=== PATIENT | female | born 1955 | race Caucasian/White ===

== ENCOUNTER → 2016-03-02 | Outpatient (CLI) | payer BC, OTHER ==
[2016-03-02 18:31] LABS: BLOOD UREA NITROGEN 10 mg/dl (7-18); BUN/CREATININE RATIO 12.4 (10-20); CALCIUM 9.3 mg/dl (8.5-10.1); CARBON DIOXIDE 28 mmol/L (21-32); CHLORIDE 103 mmol/L (98-107); CREATININE 0.78 mg/dl (0.60-1.20); GLUCOSE 102 mg/dl (70-99); POTASSIUM 3.9 mmol/L (3.5-5.1); SODIUM 143 mmol/L (136-145)
[2016-03-02 18:41] LABS: PHOSPHORUS 2.7 mg/dl (2.5-4.9)
[2016-03-03 06:06] LABS: ESTIMATED AVERAGE GLUCOSE 134 mg/dl; HA1C FLAG Normal (Normal)
== END | disposition home or self-care (01) ==
LOC: C.LABMFLN 14:16
PROVIDERS: ATTEND Family Medicine
DX: E03.9 Hypothyroidism, unspecified (principal); E11.9 Type 2 diabetes mellitus without complications

== ENCOUNTER → 2016-09-13 | Outpatient (CLI) | payer BC ==
[2016-09-13 18:20] LABS: BLOOD UREA NITROGEN 11 mg/dl (7-18); BUN/CREATININE RATIO 12.1 (10-20); CALCIUM 9.2 mg/dl (8.5-10.1); CARBON DIOXIDE 31 mmol/L (21-32); CHLORIDE 105 mmol/L (98-107); CREATININE 0.91 mg/dl (0.60-1.20); GLUCOSE 99 mg/dl (70-99); PHOSPHORUS 3.3 mg/dl (2.5-4.9); POTASSIUM 3.8 mmol/L (3.5-5.1); SODIUM 142 mmol/L (136-145)
[2016-09-14 08:23] LABS: ESTIMATED AVERAGE GLUCOSE 140 mg/dl; HA1C FLAG Normal (Normal)
== END | disposition home or self-care (01) ==
LOC: C.LABMFLN 14:58
PROVIDERS: ATTEND Family Medicine
DX: E11.9 Type 2 diabetes mellitus without complications (principal)

== ENCOUNTER → 2017-05-12 | Outpatient (CLI) | payer BC ==
[2017-05-12 18:45] LABS: BASO % 0.2 %; BASO ABS # 0.02 K/uL (0-0.2); EOS % 1.9 %; EOS ABS # 0.15 K/uL (0-0.5); HEMATOCRIT 39.6 % (37-47); HEMOGLOBIN 12.9 g/dL (12.0-16.0); IG# 0.03 K/uL (0.00-0.02); LYMPH % 32.3 %; MEAN CELL VOLUME 89.6 fL (80-100); MEAN CORPUSCULAR HEMOGLOBIN 29.2 pg (25-34); MEAN CORPUSCULAR HGB CONC 32.6 g/dl (32-36); MEAN PLATELET VOLUME 10.3 fL (7.4-10.4); MONO % 5.8 %; MONO ABS # 0.47 K/uL (0.11-0.59); NEUT % 59.4 %; NEUT ABS # 4.77 K/uL (1.4-6.5); PLATELET COUNT 224 K/uL (130-400); RED CELL DISTRIBUTION WIDTH CV 15.1 % (11.5-14.5); RED CELL DISTRIBUTION WIDTH SD 49.1 fL (36.4-46.3); WHITE BLOOD COUNT 8.04 K/uL (4.8-10.8)
[2017-05-12 19:05] LABS: ALBUMIN 3.6 gm/dl (3.4-5.0); ALT/SGPT 26 U/L (12-78); AST/SGOT 17 U/L (15-37); BLOOD UREA NITROGEN 15 mg/dl (7-18); CALCIUM 9.1 mg/dl (8.5-10.1); CARBON DIOXIDE 31 mmol/L (21-32); CREATININE 0.89 mg/dl (0.60-1.20); GLUCOSE 115 mg/dl (70-99); POTASSIUM 3.8 mmol/L (3.5-5.1); SODIUM 139 mmol/L (136-145)
[2017-05-12 19:14] LABS: ALKALINE PHOSPHATASE 80 U/L (45-117); CHOLESTEROL 170 mg/dl (0-200); LDL CHOLESTEROL CALCULATED 77 mg/dl; TOTAL PROTEIN 7.7 gm/dl (6.4-8.2)
[2017-05-13 07:20] LABS: HEMOGLOBIN A1C 6.8 % (4.5-5.6)
== END | disposition home or self-care (01) ==
LOC: C.LABMFLN 14:17
PROVIDERS: ATTEND Family Medicine
DX: E11.9 Type 2 diabetes mellitus without complications (principal); E03.9 Hypothyroidism, unspecified; E78.5 Hyperlipidemia, unspecified; I10 Essential (primary) hypertension

== ENCOUNTER → 2017-06-02 | Outpatient (CLI) | payer BC ==
[2017-06-02 17:55] LABS: BASO % 0.2 %; BASO ABS # 0.02 K/uL (0-0.2); EOS % 1.5 %; EOS ABS # 0.12 K/uL (0-0.5); HEMATOCRIT 38.2 % (37-47); HEMOGLOBIN 12.3 g/dL (12.0-16.0); IG# 0.03 K/uL (0.00-0.02); LYMPH % 23.2 %; LYMPH ABS # 1.89 K/uL (1.2-3.4); MEAN CELL VOLUME 89.7 fL (80-100); MEAN CORPUSCULAR HEMOGLOBIN 28.9 pg (25-34); MEAN CORPUSCULAR HGB CONC 32.2 g/dl (32-36); MEAN PLATELET VOLUME 10.5 fL (7.4-10.4); MONO % 5.5 %; MONO ABS # 0.45 K/uL (0.11-0.59); NEUT % 69.2 %; NEUT ABS # 5.62 K/uL (1.4-6.5); PLATELET COUNT 227 K/uL (130-400); RED CELL DISTRIBUTION WIDTH CV 15.1 % (11.5-14.5); RED CELL DISTRIBUTION WIDTH SD 49.2 fL (36.4-46.3); WHITE BLOOD COUNT 8.13 K/uL (4.8-10.8)
== END | disposition home or self-care (01) ==
LOC: C.LABMFLN 14:20
PROVIDERS: ATTEND Internal Medicine Hematology & Oncology
DX: C50.411 Malignant neoplasm of upper-outer quadrant of right female breast (principal)

== ENCOUNTER → 2017-06-09 | Outpatient (CLI) | payer BC ==
[2017-06-09 18:09] LABS: BASO % 0.1 %; BASO ABS # 0.01 K/uL (0-0.2); EOS % 1.7 %; EOS ABS # 0.13 K/uL (0-0.5); HEMATOCRIT 38.5 % (37-47); HEMOGLOBIN 12.1 g/dL (12.0-16.0); IG# 0.02 K/uL (0.00-0.02); LYMPH ABS # 1.94 K/uL (1.2-3.4); MEAN CELL VOLUME 91.7 fL (80-100); MEAN CORPUSCULAR HEMOGLOBIN 28.8 pg (25-34); MEAN CORPUSCULAR HGB CONC 31.4 g/dl (32-36); MEAN PLATELET VOLUME 10.4 fL (7.4-10.4); MONO % 5.9 %; MONO ABS # 0.44 K/uL (0.11-0.59); NEUT ABS # 4.93 K/uL (1.4-6.5); PLATELET COUNT 224 K/uL (130-400); RED CELL DISTRIBUTION WIDTH CV 15.4 % (11.5-14.5); RED CELL DISTRIBUTION WIDTH SD 51.7 fL (36.4-46.3); WHITE BLOOD COUNT 7.47 K/uL (4.8-10.8)
== END | disposition home or self-care (01) ==
LOC: C.LABMFLN 11:10
PROVIDERS: ATTEND Internal Medicine Hematology & Oncology
DX: C50.411 Malignant neoplasm of upper-outer quadrant of right female breast (principal)

== ENCOUNTER → 2017-06-16 | Outpatient (CLI) | payer BC ==
[2017-06-16 17:46] LABS: BASO % 0.1 %; BASO ABS # 0.01 K/uL (0-0.2); EOS % 1.5 %; EOS ABS # 0.13 K/uL (0-0.5); HEMATOCRIT 39.5 % (37-47); HEMOGLOBIN 13.2 g/dL (12.0-16.0); IG# 0.02 K/uL (0.00-0.02); LYMPH % 20.1 %; LYMPH ABS # 1.79 K/uL (1.2-3.4); MEAN CORPUSCULAR HEMOGLOBIN 29.7 pg (25-34); MEAN CORPUSCULAR HGB CONC 33.4 g/dl (32-36); MEAN PLATELET VOLUME 10.4 fL (7.4-10.4); MONO % 4.6 %; MONO ABS # 0.41 K/uL (0.11-0.59); NEUT % 73.5 %; NEUT ABS # 6.56 K/uL (1.4-6.5); PLATELET COUNT 238 K/uL (130-400); RED CELL DISTRIBUTION WIDTH CV 14.8 % (11.5-14.5); RED CELL DISTRIBUTION WIDTH SD 47.7 fL (36.4-46.3); WHITE BLOOD COUNT 8.92 K/uL (4.8-10.8)
== END | disposition home or self-care (01) ==
LOC: C.LABMFLN 14:43
PROVIDERS: ATTEND Internal Medicine Hematology & Oncology
DX: C50.411 Malignant neoplasm of upper-outer quadrant of right female breast (principal)

== ENCOUNTER 2023-03-01 08:25 | Observation (INO) ==
--- NOTE | 2023-01-20 10:26 | PAT Medication Instructions ---
Medication Instructions Date of Service January 20, 2023 Home Medications Medication Instructions Recorded lancets (OneTouch UltraSoft #100 ea 10/24/19 Lancets) BIPAP 16/13 #1 ea 08/18/20 blood sugar diagnostic (FreeStyle #100 ea 10/16/20 Lite Strips) blood-glucose meter (FreeStyle #1 ea 10/16/20 [place] Lite kit) fluticasone 250 mcg-salmeterol 50 1 inh inhalation BID #3 Inhalers 10/23/20 mcg/dose blistr powdr for inhalation ([place]ixela Inhub) albuterol sulfate 90 mcg/actuation 2 puff inhalation Q4H PRN 08/04/21 aerosol inhaler shortness of breath or wheezing #18 grams pravastatin 20 mg tablet 20 mg PO HS #90 tabs 05/22/22 metformin 500 mg tablet 1,000 mg (2 x 500 mg) PO BID #360 08/15/22 tabs aspirin 81 mg tablet 81 mg PO QPM mecobalamin (vitamin B12) 1,000 mcg chewable tablet 1,000 mcg PO QPM calcium carbonate 600 mg calcium (1,500 mg) tablet (Calcium) 1,200 mg PO QPM fluticasone 250 mcg-salmeterol 50 mcg/dose blistr powdr for inhalation (Wixela Inhub) 1 inh inhalation BID albuterol sulfate 90 mcg/actuation aerosol inhaler 2 puff inhalation Q4H PRN pravastatin 20 mg tablet 20 mg PO HS metformin 500 mg tablet 1,000 mg (2 x 500 mg) PO BID Lactobacillus acidophilus-Bifidobac.animalis 31 billion cell capsule 1 cap PO QPM allopurinol 100 mg tablet 200 mg PO QAM anastrozole 1 mg tablet 1 mg PO QPM biotin 5 mg capsule 5 mg PO QPM furosemide 40 mg tablet 40 mg PO QAM levothyroxine 50 mcg tablet 50 mcg PO QAM losartan 50 mg tablet 25 mg PO QAM multivitamin (Multiple Vitamins tablet) 1 tab PO QPM potassium chloride 10 mEq capsule,extended release 10 meq PO QAM semaglutide 7 mg tablet (Rybelsus) 7 mg PO QAM ASK your prescriber and surgeon aspirin 81 mg tablet 81 mg PO QPM anastrozole 1 mg tablet 1 mg PO QPM STOP taking 2 weeks before surgery (or as soon as possible if surgery is within 2 weeks) biotin 5 mg capsule 5 mg PO QPM DO NOT take the morning of surgery metformin 500 mg tablet 1,000 mg (2 x 500 mg) PO BID furosemide 40 mg tablet 40 mg PO QAM losartan 50 mg tablet 25 mg PO QAM potassium chloride 10 mEq capsule,extended release 10 meq PO QAM semaglutide 7 mg tablet (Rybelsus) 7 mg PO QAM Take morning of surgery With a small sip of water, OTHERWISE NOTHING TO EAT OR DRINK AFTER MIDNIGHT: fluticasone 250 mcg-salmeterol 50 mcg/dose blistr powdr for inhalation (Wixela Inhub) 1 inh inhalation BID albuterol sulfate 90 mcg/actuation aerosol inhaler 2 puff inhalation Q4H PRN(use if needed; please bring with you to hospital day of surgery if possible) allopurinol 100 mg tablet 200 mg PO QAM levothyroxine 50 mcg tablet 50 mcg PO QAM Take evening before surgery mecobalamin (vitamin B12) 1,000 mcg chewable tablet 1,000 mcg PO QPM calcium carbonate 600 mg calcium (1,500 mg) tablet (Calcium) 1,200 mg PO QPM fluticasone 250 mcg-salmeterol 50 mcg/dose blistr powdr for inhalation (Wixela Inhub) 1 inh inhalation BID albuterol sulfate 90 mcg/actuation aerosol inhaler 2 puff inhalation Q4H PRN(if needed) pravastatin 20 mg tablet 20 mg PO HS metformin 500 mg tablet 1,000 mg (2 x 500 mg) PO BID Lactobacillus acidophilus-Bifidobac.animalis 31 billion cell capsule 1 cap PO QPM multivitamin (Multiple Vitamins tablet) 1 tab PO QPM Other Notes If you have any questions please call us at [phone] or [phone] or [phone] or [phone]
--- NOTE | 2023-01-27 11:33 | Anesthesiology Consultation ---
Date of Service January 27, 2023 Assessment & Plan (1) Encounter for pre-operative examination: - awaiting cardiology clearance regarding chronic occasional chest discomfort and shortness of breath when walking in cold weather-uses albuterol inhaler and symptoms fully resolve; with usual activities, patient requests seeing [place] cardiology at [place] office if possible. - cardiology clearance given that previously reported chest discomfort was described as not associated with exertion with chest discomfort described by patient at PAT visit per discussion with Dr. Tejada. Surgeon's office made aware. Patient made aware, denied questions or concerns. - check BSG am DOS. - upcoming [place] medical clearance. - Right arm restriction. - Patient inquired as to general vs neuraxial anesthesia which we discussed in detail. She expresses preference to proceed with planned neuraxial anesthesia with sedation, denied additional questions or concerns. - abscess/broken tooth with plan for upcoming crown placement: Patient states she completed Rx Medrol dose pack and cephalexin. She was instructed to contact surgeon's office soon regarding this in setting of planned surgery. She verbalized understanding and agreement, denied questions or concerns. I also sent message to surgeon's office. - nothing additional needed regarding sodium pentathol allergy per Dr. Wallace. - Outpatient joint assessment: Patient is currently scheduled for inpatient pathway. If re-evaluated and patient/surgeon requests outpatient pathway, patient is not recommended candidate for outpatient joint program from anesthesia standpoint. Chart Review Chart Review: Pending: Refer to Additional Notes / Consult section and Patient seen in Pre Admission Testing Teaching & Discussion Pre-Anesthesia Teaching/Discussion Notes: Instructed NPO after midnight before surgery, except medications with 15 cc of water. Medication instructions provided according to the PAT guidelines. History Surgery Operation Date: 03/01/23 09:35 Proposed Procedures p Right Total Knee Arthroplasty - Phil Freeman MD Height/Weight Height: 5 ft 3 in Weight: 124.7 kg Allergies Allergy/AdvReac Type Severity Reaction Status Date / Time eucalyptus Allergy Severe Rash Verified 01/27/23 16:01 shrimp Allergy Severe mouth Verified 01/27/23 16:01 blisters strawberry Allergy Severe mouth Verified 01/27/23 16:01 blisters tomato Allergy Intermediate Hives Verified 01/27/23 16:01 amoxicillin Allergy Anaphylaxis Verified 01/20/23 09:41 Sulfa (Sulfonamide Allergy Rash Verified 01/20/23 09:41 Antibiotics) sodium pentothal Allergy Swelling Uncoded 01/20/23 10:28 of Lip/Tongue/Throat Medications Home Medications Medication Instructions Recorded Confirmed Last Taken aspirin 81 mg tablet 81 mg PO QPM #1 tab 11/12/18 01/20/23 Unknown lancets (OneTouch UltraSoft #100 ea 10/24/19 11/03/22 Unknown Lancets) mecobalamin (vitamin B12) 1,000 1,000 mcg PO QPM 10/24/19 01/20/23 Unknown mcg chewable tablet calcium carbonate 600 mg calcium 1,200 mg PO QPM 05/12/20 01/20/23 Unknown (1,500 mg) tablet (Calcium) BIPAP 16/13 #1 ea 08/18/20 11/03/22 Unknown blood sugar diagnostic (FreeStyle #100 ea 10/16/20 11/03/22 Unknown Lite Strips) blood-glucose meter (FreeStyle #1 ea 10/16/20 11/03/22 Unknown [place] Lite kit) fluticasone 250 mcg-salmeterol 50 1 inh inhalation BID #3 Inhalers 10/23/20 01/20/23 Unknown mcg/dose blistr powdr for inhalation ([place] Inhub) albuterol sulfate 90 mcg/actuation 2 puff inhalation Q4H PRN 08/04/21 01/20/23 Unknown aerosol inhaler shortness of breath or wheezing #18 grams pravastatin 20 mg tablet 20 mg PO HS #90 tabs 05/22/22 01/20/23 Unknown metformin 500 mg tablet 1,000 mg (2 x 500 mg) PO BID #360 08/15/22 01/20/23 Unknown tabs Lactobacillus 1 cap PO QPM 01/20/23 01/20/23 Unknown acidophilus-Bifidobac.animalis 31 billion cell capsule allopurinol 100 mg tablet 200 mg PO QAM 01/20/23 01/20/23 Unknown anastrozole 1 mg tablet 1 mg PO QPM 01/20/23 01/20/23 Unknown biotin 5 mg capsule 5 mg PO QPM 01/20/23 01/20/23 Unknown furosemide 40 mg tablet 40 mg PO QAM 01/20/23 01/20/23 Unknown levothyroxine 50 mcg tablet 50 mcg PO QAM 01/20/23 01/20/23 Unknown losartan 50 mg tablet 25 mg PO QAM 01/20/23 01/20/23 Unknown multivitamin (Multiple Vitamins 1 tab PO QPM 01/20/23 01/20/23 Unknown tablet) potassium chloride 10 mEq 10 meq PO QAM 01/20/23 01/20/23 Unknown capsule,extended release semaglutide 7 mg tablet (Rybelsus) 7 mg PO QAM 01/20/23 01/20/23 Unknown Past Medical History Medical History Dysphagia per PCP notes felt to be due to pills being dry Limb alert care status right arm BPPV (benign paroxysmal positional vertigo) controlled, stable per pt History of gout last episode several yrs ago Urinary incontinence History of breast cancer dx'd approx 5 years ago. Rt breast. surgery + radiation-limb restriction SVT (supraventricular tachycardia) occasional palpitations with dizziness Atrial fibrillation "I went into A.fib during a stress test." states resolved spontaneously. 04/2022 S. [place] [facility]. Asthma uses PRN inh daily Diabetic peripheral neuropathy feet Diabetes mellitus NIDDM Hyperlipidemia Hypertension controlled, stable per pt Hypothyroidism Morbid obesity Multiple thyroid nodules Sleep apnea BiPAP-compliant Patient denies h/o stroke, seizures, heart attack, heart failure, blood clots/DVTs or blood transfusions. Exercise / Class Metabolic Activity III < 4 Walking/Shop/Light housework (chronic occasional chest discomfort and shortness of breath when walking in cold weather-uses albuterol inhaler and symptoms fully resolve; with usual activities) Past Family History Family History Mother Kidney disease COPD (chronic obstructive pulmonary disease) Depression Hyperlipidemia Hypertension Sleep apnea Father Lung cancer Past Surgical History Surgical History History of oral surgery History of wisdom tooth extraction History of lumpectomy of right breast x 2 (benign x 1, malignant x 1) History of lumpectomy of left breast benign History of breast biopsy several-with initial breast biopsy-35 years ago-reaction to sodium pentathol- slow to wake denies needing re-intubation H/O colonoscopy 02/24/15 repeat 10yrs Past Anesthesia History No Family Hx of Anesthesia Complications and Other (see above under breast biopsy, reaction to sodium pentathol; denies any additional episodes of slow to wake after anesthesia or any other anesthesia complications/concerns) History of PONV No Hx of PONV and No Hx of Motion Sickness Social History Smoking Status: Never smoker Do You Dip or Chew Tobacco: No Hx Alcohol Use: Yes alcohol intake frequency: holidays/special occasions only Hx Substance Use: No substance use type: does not use Review of Systems Patient denies fever, or chills. Physical Exam Vital Signs Vitals BP 128/78 P 80 TEMP 98.8 SP02 95% on RA RESP 18 Physical Patient resting comfortably in chair in no acute distress, alert and oriented, responding appropriately throughout visit Full cervical extension range of motion without pain TMD < 3 finger breadths Mallampati Score 3 Dentition: broken tooth-temporary crown, denies loose teeth, implants or bridges Lungs: normal respiratory effort. Good air movement, clear throughout to auscultation, no adventitious breath sounds Cardiac: regular rate and rhythm, no murmurs noted Carotid arteries: negative bruit bilat Lab Results Anesthesia Preop Results Results Anesthesia Widget: WBC 7.74 K/ul (4.8-10.8) 01/27/23 Hgb 11.9 g/dl (12.0-16.0) L 01/27/23 Hct 35.6 % (37.0-47.0) L 01/27/23 Plt 216 K/uL (130-400) 01/27/23 Na 142 mmol/L (136-145) 01/27/23 K 4.2 mmol/L (3.5-5.1) 01/27/23 Cl 107 mmol/L (98-107) 01/27/23 CO2 27 mmol/L (21-32) 01/27/23 BUN 16 mg/dl (6-23) 01/27/23 Creat 0.87 mg/dl (0.6-1.2) 01/27/23 Glucose Level 121 mg/dl (70-99(Fasting)) H 01/27/23 PT 10.2 Seconds (9.0-12.0) 01/27/23 PTT 30 Seconds (21-31) 01/27/23 INR 0.9 (0.9-1.1) 01/27/23 HA1c 6.5 % (4.5-5.6) H 01/27/23 Urine Color Dark Yellow 01/27/23 Urine Appearance Turbid (Clear) A 01/27/23 Urine pH 8.5 (4.5-7.5) H 01/27/23 Urine Specific [place] 1.027 (1.000-1.030) 01/27/23 Urine Protein Negative (Negative) 01/27/23 Urine Glucose (UA) Negative (Negative) 01/27/23 Urine Ketones Trace (Negative) H 01/27/23 Urine Blood Negative (Negative) 01/27/23 Urine Nitrite Negative (Negative) 01/27/23 Urine Bilirubin Negative (Negative) 01/27/23 Urine Urobilinogen Negative (Negative) 01/27/23 Urine Leukocyte Esterase Negative (Negative) 01/27/23 Urine WBC (Auto) 1-5 /hpf (0-5) 01/27/23 Urine RBC (Auto) 0-4 /hpf (0-4) 01/27/23 Urine Hyaline Casts (Auto) 0 /lpf (0-5) 01/27/23 Urine Epithelial Cells (Auto) 5-10 /lpf (0-5) H 01/27/23 Urine Bacteria (Auto) Negative (Negative) 01/27/23 Blood Type A Positive 01/27/23 Antibody Screen NEGATIVE 01/27/23 Testing Electrocardiogram Date: 04/25/22 Sinus rhythm, rate 67 bpm Low QRS voltage in precordial leads Probable inferior myocardial infarction, probably old Chest X-Ray Date: 01/27/23 No acute process. Stress Test Date: 05/05/22 Dobutamine MPHR 85% Normal without resting LV wall motion abnormalities or inducible ischemia SVT mechanism appears to be atrial flutter with rates in the 180s at peak infusion, broke in 2 minutes EF 60-64% Grade I diastolic dysfunction Non-dilated cardiac chambers No significant valvular pathology Other Testing Cardiac event monitor 08/03/22 Sinus rhythm, rate 77 bpm Frequent supraventricular ectopic complexes Nonsustained atrial tachycardia 6 reported symptomatic episodes including chest pain and heart racing, typically occurred during sinus rhythm with PACs
--- NOTE | 2023-02-28 08:55 | History & Physical Report ---
Date of Service February 28, 2023 Assessment & Plan (1) Primary osteoarthritis of right knee: Plan: Treatment options discussed with the patient. She has failed conservative measures and would like to proceed with surgical management. Risks, benefits and alternatives to surgery including but not limited to infection, DVT, pain, stiffness, need for revision surgery, damage to blood vessels, damage to nerves, PE, , were discussed with the patient and they wish to proceed. Plan on right total knee arthroplasty scheduled for March 01 at [facility] with Dr. Freeman. Plan on Xarelto post op for DVT prophylaxis. Plan on inpatient rehab. All questions answered. Patient will f/u post op. History of Present Illness Chief Complaint: Right knee pain Primary Care Provider: Tricia Lo, 67yo female with PMHx significant for HTN, high cholesterol, DM2, hypothyroidism, SVT, hx of afib, RUFINA who presents with ongoing right knee pain. Pain is interfering with her daily activities. She has failed conservative measures and would like to proceed with surgical management. Patient denies headaches, sweats, fevers, chills, double vision, blurred vision, cough, sore throat, dysphagia, chest pain, sob, wheezing, n/v/d/c, numbness, tingling, fatigue, urinary symptoms, mood disorders. ROS positive for right knee pain and stiffness. Allergies Allergy/AdvReac Type Severity Reaction Status Date / Time eucalyptus Allergy Severe Rash Verified 02/07/23 13:02 shrimp Allergy Severe mouth Verified 02/07/23 13:02 blisters amoxicillin Allergy Anaphylaxis Verified 02/07/23 13:02 Sulfa (Sulfonamide Allergy Rash Verified 02/07/23 13:02 Antibiotics) sodium pentothal Allergy Swelling Uncoded 02/07/23 13:02 of Lip/Tongue/Throat Home Medications Medication Instructions Recorded Confirmed Type aspirin 81 mg tablet 81 mg PO QPM #1 tab 11/12/18 02/07/23 History lancets (OneTouch UltraSoft #100 ea 10/24/19 01/30/23 Rx Lancets) mecobalamin (vitamin B12) 1,000 1,000 mcg PO QPM 10/24/19 02/07/23 History mcg chewable tablet calcium carbonate 600 mg calcium 1,200 mg PO QPM 05/12/20 02/07/23 History (1,500 mg) tablet (Calcium) BIPAP #1 ea 08/18/20 01/30/23 Rx blood sugar diagnostic (FreeStyle #100 ea 10/16/20 01/30/23 Rx Lite Strips) blood-glucose meter (FreeStyle #1 ea 10/16/20 01/30/23 Rx [place] Lite kit) albuterol sulfate 90 mcg/actuation 2 puff inhalation Q4H PRN 08/04/21 02/07/23 Rx aerosol inhaler shortness of breath or wheezing #18 grams pravastatin 20 mg tablet 20 mg PO HS #90 tabs 05/22/22 02/07/23 Rx Lactobacillus 1 cap PO QPM 01/20/23 02/07/23 History acidophilus-Bifidobac.animalis 31 billion cell capsule anastrozole 1 mg tablet 1 mg PO QPM 01/20/23 02/07/23 History biotin 5 mg capsule 5 mg PO QPM 01/20/23 02/07/23 History furosemide 40 mg tablet 40 mg PO QAM 01/20/23 02/07/23 History levothyroxine 50 mcg tablet 50 mcg PO QAM 01/20/23 02/07/23 History multivitamin (Multiple Vitamins 1 tab PO QPM 01/20/23 02/07/23 History tablet) potassium chloride 10 mEq 10 meq PO QAM 01/20/23 02/07/23 History capsule,extended release semaglutide 7 mg tablet (Rybelsus) 7 mg PO QAM 01/20/23 02/07/23 History fluticasone 250 mcg-salmeterol 50 1 inh inhalation BID #3 Inhalers 02/01/23 02/07/23 Rx mcg/dose blistr powdr for inhalation ([place]ix[place] Inhub) losartan 50 mg tablet 25 mg (1/2 x 50 mg) PO QAM #45 tabs 02/07/23 Rx metformin 500 mg tablet 1,000 mg (2 x 500 mg) PO BID #360 02/07/23 Rx tabs allopurinol 100 mg tablet 200 mg (2 x 100 mg) PO QAM #180 02/15/23 Rx tabs Past Med/Surg History Medical History (Updated 02/28/23 @ 08:54 by Leonel Alexis PA-C) Macular degeneration patient states will be starting AREDS after surgery Dysphagia per PCP notes felt to be due to pills being dry Limb alert care status right arm BPPV (benign paroxysmal positional vertigo) controlled, stable per pt History of gout last episode several yrs ago Urinary incontinence History of breast cancer dx'd approx 5 years ago. Rt breast. surgery + radiation-limb restriction SVT (supraventricular tachycardia) occasional palpitations with dizziness Atrial fibrillation "I went into A.fib during a stress test." states resolved spontaneously. 04/2022 S. [place] [facility]. Asthma uses PRN inh daily Diabetic peripheral neuropathy feet Diabetes mellitus NIDDM Hyperlipidemia Hypertension controlled, stable per pt Hypothyroidism Morbid obesity Multiple thyroid nodules Sleep apnea BiPAP-compliant Surgical History History of oral surgery History of wisdom tooth extraction History of lumpectomy of right breast x 2 (benign x 1, malignant x 1) History of lumpectomy of left breast benign History of breast biopsy several-with initial breast biopsy-35 years ago-reaction to sodium pentathol- slow to wake denies needing re-intubation H/O colonoscopy 02/24/15 repeat 10yrs Family History Mother Kidney disease COPD (chronic obstructive pulmonary disease) Depression Hyperlipidemia Hypertension Sleep apnea Father Lung cancer Social History Smoking Status: Never smoker Second Hand Exposure: No; Do You Dip or Chew Tobacco: No; Hx Alcohol Use: Yes Hx Substance Use: No Preferred Language: Maori Communication Ability: Effective Resources Representative Required: No Beliefs That Will Affect Care: Restorationist Restorationist Beliefs: Quaker marital status: Single Current Living Situation: Alone Feels Safe at Home: Yes Safety Concerns: Feels Safe At This Time Assistive Devices: Cane and Glasses Review of Systems All systems reviewed & are unremarkable except as noted in HPI & below Physical Exam Constitutional: well developed and well nourished; no acute distress Eyes: PERRL, conjunctivae normal, anicteric sclerae ENMT: external ear and nose normal, oropharynx normal Neck: trachea midline, no thyromegaly Respiratory: normal respiratory effort, lungs clear to auscultation Cardiovascular: RRR, no murmur, no edema Musculoskeletal: Right knee: Varus alignment. Medial joint line tenderness, stable to valgus and varus stress. ROM 0-115 degres. Skin: no rashes, warm and dry Neurologic: patellar DTR's 2+ bilat, sensation intact Psychiatric: A+Ox3, euthymic affect Results & Data Diagnostic Findings 4 views right knee including AP, PA flexion, lateral, and patella x-rays reviewed and shows severe tricompartmental DJD with complete loss of joint spaces and large periarticular osteophytes.
[~2023-03-01 08:25] MED LIST: ACETAMINOPHEN 500 MG TAB PO SCH; BUPIVACAINE 0.25% PF 30 ML VIAL ONE; BUPIVACAINE 0.5 % 5 MG/1 ML PF 10ML VIAL ONE; DEXAMETHASONE SOD INJ 4 MG/ML VIAL ONE; FAMOTIDINE 20 MG TAB PO SCH; GABAPENTIN 300 MG CAP PO SCH; GLYCOPYRROLATE 0.2 MG/ML VIAL ONE; LR 500ML BOLUS, THEN 15ML/HR IV SCH; LR 60ML/HR IV SCH; METOCLOPRAMIDE HCL 10 MG TABLET PO SCH; MIDAZOLAM HCL 1 MG/ML 2ML VIAL ONE; ONDANSETRON INJ 2 MG/ML 2 ML VIAL ONE; PROPOFOL IV EMULSION 10 MG/ML 20 ML VIAL IV ONE; ROPIV 0.5% 246mg, Ketorolac 30mg, EPINEPHrine 0.5mg in NSS INFIL SCH; TRANEXAMIC ACID 1,000 MG **IV Intra-op IV SCH; TRANEXAMIC ACID 1,000 MG **IV Pre-op IV SCH; VANCOMYCIN HCL 1,750 MG in SODIUM CHLORIDE 0.9% 500 ML IV SCH; fentaNYL citrate PF 100 MCG/2 ML VIAL ONE
[2023-03-01] MEDS ORDERED: ORTHO JOINT ANESTHETIC ONE (09:26)
--- NOTE | 2023-03-01 09:30 | History & Physical Bridge Note ---
Date of Service March 01, 2023 History & Physical Bridge Note I have examined the patient, reviewed the History & Physical and in the interval since the performance of the History & Physical I have noted the following changes of clinical significance: no changes noted
[2023-03-01] MEDS ORDERED: ePHEDrine sulfate 50 MG/ML AMP IV PRN (10:23)
[2023-03-01] MEDS ORDERED: fentaNYL citrate PF 100 MCG/2 ML VIAL IV PRN (10:23)
[2023-03-01] MEDS ORDERED: ATROPINE SULFATE 0.1 MG/ML 10ML SYR IV PRN (10:23)
[2023-03-01] MEDS ORDERED: ONDANSETRON INJ 2 MG/ML 2 ML VIAL IV PRN ×2 (10:23→14:52)
[2023-03-01] MEDS ORDERED: DEXAMETHASONE SOD INJ 4 MG/ML VIAL ONE (11:29)
[2023-03-01] MEDS ORDERED: ONDANSETRON INJ 2 MG/ML 2 ML VIAL ONE (11:29)
[2023-03-01] MEDS ORDERED: PROPOFOL IV EMULSION 10 MG/ML 20 ML VIAL IV ONE (12:57)
--- NOTE | 2023-03-01 13:31 | Operative Report ---
Post Operative Report Pre & Post Diagnosis Operation Date: 03/01/23 11:50 Pre-Op Diagnosis: Primary osteoarthritis of right knee, Morbid obesity BMI 48 Post-Op Diagnosis: Primary osteoarthritis of right knee, morbid obesity BMI 48.7 I identified the patient and participated in the time-out.: Yes Procedure Operation Date: 03/01/23 11:50 Actual Procedures p Right Total Knee Arthroplasty(Right) , lateral release, shelton and Acticoat superficial wound VAC application- Phil Freeman MD Surgeon Phil Freeman MD Continuity Reader Leonel WALTON Estimated Blood Loss 5 Findings Consistent with Post-Op Diagnosis Specimens bone cuts Drains 2 Hemovac Anesthesia Type MAC Spinal Regional Complications none Disposition Disposition: Recovery Room Indications 67-year-old Female with chronic progressive osteoarthritis right knee failed conservative management. patient is tricompartment osteoarthritis [id number] medial compartment moderate varus alignment of the knee Description of Procedure the patient was taken to the operating room and anesthetized under Spinal MAC regional block. Patient was placed supine on the the operating table. A pneumatic tourniquet was placed about the Obese right upper thigh. The knee exam demonstrated posterior thigh knee and lower leg some chronic venous stasis changes intact skin no instability but is stiff knee with 0 through 105 degrees range of motion . The involved leg was elevated exsanguinated with Esmarch bandage and the pneumatic tourniquet was raised to 350 millimeters mercury. A longitudinal incision was made across the anterior knee. Skin flaps were elevated. An incision was made into the medial retinaculum and extended up into the mid third of the quadriceps tendon and extended down to the tibial tubercle. Intra-articular findings demonstrated tricompartmental osteoarthritis grade 4 osteoarthritis all compartments with some chronic partial tearing of the ACL and chronic meniscus tears. There were very large osteophytes medially adjacent to the MCL and around the posterior medial corner of the knee. There were very large osteophytes on the tibial plateau posterior medially as well. The knee was exposed by excising cruciate ligaments and menisci. The infrapatellar fat pad was resected. The fat pad over the anterior femur at the upper aspect of the articular surface was resected for placement of the component in that area. A subperiosteal peel lateral release was performed around the patella. The [employer] journey 2.0 total knee arthroplasty system was utilized for the procedure. The custom femoral cutting guide was pinned in position. The distal femoral cut was made. The size 4, 5 in 1 cutting block was placed. The anterior posterior and chamfer cuts were made. The knee was extended and a free hand cut technique was performed to the patella. The patella width was measured and the width was reproduced using a 29 symmetrical patella component. The excess lateral facet was beveled off to prevent any impingement. 3 drill holes are made for the patella component pegs. the excess lateral facet of the patella was beveled off to prevent any impingement. The tibia was then Exposed but could not be fully subluxed under the femur.. The External tibial cutting guide was adjusted for slope and varus valgus alignment and pinned in position and the proximal tibial cut was made with the oscillating saw. Flexion and extension gaps were balanced. no releases were required. The size 3 tibial trial was externally rotated in line with the tibial tubercle and pinned in position. The punch for the stem was used. The femoral trial was inserted and centered the notch cutting devices were used and the collet was placed. Tibial trials were used for the insert. The size 11 posterior stabilized trial gave balanced ligaments through full range of motion. Patella tracking was assessed with range of motion. The patella tracked with some lateral patellar tilt so I did do a lateral release leaving the synovium intact which corrected the patella tracking to central without tilt. The trials were removed. The Orthomix anesthetic cocktail was injected per protocol. The cut bone surfaces and soft tissue were copiously irrigated with pulsatile lavage saline solution. The final components were cemented with Refobacin cement. The final components were Mc[employer] journey 2.0 right 4 posterior stabilized femoral component, 3 right tibial component, 10 mm right posterior stabilized polyethylene insert, 29 mm symmetrical polyethylene patella. Xperience irrigation was placed over metal tray prior to polyethyle insertion. After the cement cured, the knee was then copiously irrigated with pulsatile lavage Xperience solution. 2 drains were brought out laterally connected to Hemovac. The quadriceps tendon and medial retinaculum were closed with interrupted [id number] #1 Vicryl sutures. The knee was taken through full range of motion and repair was secure. Knee range of motion was 0 through 125 degrees. the subcutaneous tissues were closed with 2-0 Vicryl sutures. The skin was closed with stable A shelton and Acticoat superficial wound VAC was applied. The tourniquet was let down and the patient had good capillary refill to the extremity. The patient tolerated the procedure well. there was increased level difficulty due to her morbid obesity anddifficulty due to stiffness of the leg which added 30 minutes to the time of the procedure. My physician chiropractic assistant Leonel WALTON participated as showroom sales assistant and was integral part in all aspects of the procedure including prepping, draping, leg positioning, soft tissue retraction, instrument management and assisted in the closure superficial wound VAC application and will participate in postoperative care the patient. I attest to the content of the Intraoperative Record and any orders documented therein. Any exceptions are noted below.
--- NOTE | 2023-03-01 14:25 | Anesthesiology Progress Note ---
Date of Service March 01, 2023 Anesthesia Post Procedure Vital Signs Vital Signs: Temp Pulse Pulse Resp BP Pulse Ox O2 Del Method 03/01/23 14:10 76 15 139/72 93 Room Air 03/01/23 14:00 36.6 C 83 17 139/72 95 Oxymask 03/01/23 09:01 Room Air, BiPAP 03/01/23 09:01 37.2 C 85 20 155/80 H 96 Room Air, BiPAP O2 Flow Rate 03/01/23 14:10 03/01/23 14:00 5 03/01/23 09:01 03/01/23 09:01 Pain Intensity Right Knee: Pain Intensity: 1 Transfer of Care Handoff Completed per policy Notes Mental Status: alert / awake / arousable and participated in evaluation Patient Amnestic to Procedure: Yes Nausea / Vomiting: adequately controlled Pain: adequately controlled Airway Patency, RR, SpO2: stable & adequate BP & HR: stable & adequate Hydration State: stable & adequate Neuraxial Anesthesia: was administered and sensory block is resolving Anesthetic Complications: no major complications apparent and Pt Satisfied with anesthetic care
--- NOTE | 2023-03-01 14:30 | XRay Report ---
XR knee RT 1 or 2V routine CLINICAL HISTORY: Postoperative evaluation. COMPARISON: None FINDINGS: Alignment of the total right knee arthroplasty is anatomic. There is no periprosthetic fra cture or unexpected radiopaque foreign body. Drains and skin kelli are present. IMPRESSION: Expected findings following total right knee arthroplasty. ACT 112: Negative or not required by law. Electronically signed by: Norbert Sanchez M.D. 03/01/2023 2:28 PM
[2023-03-01] MEDS ORDERED: SODIUM CHLORIDE 0.9% 1,000 ML IV SCH (14:52)
[2023-03-01] MEDS ORDERED: ALBUTEROL HFA 8 GM INHALER INH PRN (14:52)
[2023-03-01] MEDS ORDERED: HYDROmorphone INJ 0.5 MG/0.5 ML SYR IV PRN (14:52)
[2023-03-01] MEDS ORDERED: NALOXONE HCL 0.4 MG/1 ML VIAL/CARP IV PRN (14:52)
[2023-03-01] MEDS ORDERED: bisacodyL 10 MG SUPP PR PRN (14:52)
[2023-03-01] MEDS ORDERED: METOCLOPRAMIDE HCL INJ 5 MG/ML 2 ML VIAL IV PRN (14:52)
[2023-03-01] MEDS ORDERED: VANCOMYCIN CONSULT ACTIVE PRN (14:52)
[2023-03-01] MEDS ORDERED: PHARMACY GLYCEMIC MGMT CONSULT PRN (14:52)
[2023-03-01] MEDS ORDERED: MAGNESIUM HYDROXIDE SUSP 30 ML UDC PO PRN (14:52)
--- NOTE | 2023-03-01 15:54 | Pharmacy Report ---
Pharmacy Glycemic Short Note 2 - Date of Service March 01, 2023 - Glycemic Short BSG Results (Last 24 hours): 03/01/23 03/01/23 09:36 14:12 POC Glucose 142 H 131 H 03/01/23 16:23 POC Glucose 169 H OUTPATIENT ANTIDIABETIC REGIMEN: * Metformin 1g PO BID * Semaglutide 7mg PO QAM * A1c 6.5% 01/27/23 ASSESSMENT: * 67 yo female, s/p R TKA, BSGs well controlled post-op at 142, 131mg/dl. Unclear if patient received IV Dexamethasone in OR or not? 12mg pulled, RN states documentation is unclear, possibly 10mg at 1130 and 1430? * BSG trending up now 169mg/dl prior to dinner, begin Lantus now, then give additional at HS if BSG > 180mg/dl. Begin NovoLog with dinner. PLAN FOR INPATIENT GLYCEMIC CONTROL: * Hold outpatient oral diabetes medications * Basal insulin * Lantus 20 units SQ x1 dose now, then 15 units SQ HS for BSG > 180mg/dl, further dosing in AM * Bolus insulin * NovoLog per scale ACHS or Q6hrs while NPO * Goal Range: Low 110 mg/dL - High 140 mg/dL * Correction Factor: 20 mg/dL/unit * Nutritional / Prandial insulin per carb ratio of 1 unit per 6 grams CHO consumed
[2023-03-01] MEDS ORDERED: GLUCOSE 10 TAB/TUBE PO PRN (16:00)
[2023-03-01] MEDS ORDERED: CARBOHYDRATES FOR HYPOGLYCEMIA PO PRN (16:00)
[2023-03-01] MEDS ORDERED: GLUCAGON FOR INJ 1 MG VIAL IM PRN (16:00)
[2023-03-01] MEDS ORDERED: GLUCOSE 40% GEL 15 GM TUBE PO PRN (16:00)
[2023-03-01] MEDS ORDERED: DEXTROSE 50% 50 ML SYRINGE IV PRN (16:00)
[2023-03-01] MEDS ORDERED: LANTUS PER UNIT CHARGE SC ONE (17:00)
[2023-03-01] MEDS: INSULIN ASPART PER UNIT CHARGE SC SCH ×2 (17:10→22:33)
[2023-03-01] MEDS: oxyCODONE HCL IR 5 MG TAB (IMMEDIATE RELEASE) PO PRN (17:54)
[2023-03-01] MEDS ORDERED: LANTUS PER UNIT CHARGE SC SCH (21:00)
[2023-03-01] MEDS ORDERED: VANCOMYCIN HCL 1,750 MG in SODIUM CHLORIDE 0.9% 500 ML IV SCH (21:00)
[2023-03-01] MEDS ORDERED: NON-FORMULARY MEDICATION (Biotin 5 mg capsule) PO SCH (21:00)
--- NOTE | 2023-03-01 21:02 | Hospitalist Consultation ---
Date of Consultation March 01, 2023 Assessment & Plan (1) Primary osteoarthritis of right knee: Pain/VTE/bowel management per primary orthopedic team Stop IV fluids given history of hypervolemia and currently eating and drinking well (2) Gout: No acute flare. Continue allopurinol (3) Diabetes mellitus: Pharmacy consulted for bernice operative glycemic control HbA1C 6.5 01/27/2023 - can continue usual medications on discharge, no changes required (4) Asthma: No acute exacerbation Continue routine inhalers (5) Hypertension: Hold furosemide/losartan POD#1 pending serial BP measurements No current dizziness on walking around the room (6) Hyperlipidemia: Continue pravastatin (7) Hypothyroidism: TSH WNL in October Continue current levothyroxine dosing (8) Sleep apnea: Patient has her own BiPAP. Order placed to use this. Plan Thank you for the consult, we will follow the patient with you with post operative labs tomorrow. History of Present Illness Reason for Consultation: post op Attending Physician: Phil Freeman MD History of Present Illness Lorraine Bernardo is a 67 year old female POD#0 right total knee arthroplasty. EBL 5ml. No current concerns or questions. BP on low side by she has been up moving around post operatively without dizziness. No history of MT or stroke. T2DM well controlled. She notes history of hypervolemia not requiring hospitalization when she holds her Lasix for more than 4 days - heaviness on chest and leg edema. No current shortness of breath. She has her BiPAP machine with her. Allergies Allergy/AdvReac Type Severity Reaction Status Date / Time eucalyptus Allergy Severe Rash Verified 03/01/23 08:58 shrimp Allergy Severe mouth Verified 03/01/23 08:58 blisters amoxicillin Allergy Anaphylaxis Verified 03/01/23 08:58 Sulfa (Sulfonamide Allergy Rash Verified 03/01/23 08:58 Antibiotics) sodium pentothal Allergy Swelling Uncoded 02/07/23 13:02 of Lip/Tongue/Throat Home Medications Medication Instructions Recorded Confirmed Type aspirin 81 mg tablet 81 mg PO QPM #1 tab 11/12/18 03/01/23 History lancets (OneTouch UltraSoft #100 ea 10/24/19 01/30/23 Rx Lancets) mecobalamin (vitamin B12) 1,000 1,000 mcg PO QPM 10/24/19 03/01/23 History mcg chewable tablet calcium carbonate 600 mg calcium 1,200 mg PO QPM 05/12/20 03/01/23 History (1,500 mg) tablet (Calcium) BIPAP 16/13 #1 ea 08/18/20 01/30/23 Rx blood sugar diagnostic (FreeStyle #100 ea 10/16/20 01/30/23 Rx Lite Strips) blood-glucose meter (FreeStyle #1 ea 10/16/20 01/30/23 Rx [place] Lite kit) albuterol sulfate 90 mcg/actuation 2 puff inhalation Q4H PRN 08/04/21 03/01/23 Rx aerosol inhaler shortness of breath or wheezing #18 grams pravastatin 20 mg tablet 20 mg PO HS #90 tabs 05/22/22 03/01/23 Rx Lactobacillus 1 cap PO QPM 01/20/23 03/01/23 History acidophilus-Bifidobac.animalis 31 billion cell capsule anastrozole 1 mg tablet 1 mg PO QPM 01/20/23 03/01/23 History biotin 5 mg capsule 5 mg PO QPM 01/20/23 03/01/23 History furosemide 40 mg tablet 40 mg PO QAM 01/20/23 03/01/23 History levothyroxine 50 mcg tablet 50 mcg PO QAM 01/20/23 03/01/23 History multivitamin (Multiple Vitamins 1 tab PO QPM 01/20/23 03/01/23 History tablet) potassium chloride 10 mEq 10 meq PO QAM 01/20/23 03/01/23 History capsule,extended release semaglutide 7 mg tablet (Rybelsus) 7 mg PO QAM 01/20/23 03/01/23 History fluticasone 250 mcg-salmeterol 50 1 inh inhalation BID #3 Inhalers 02/01/23 03/01/23 Rx mcg/dose blistr powdr for inhalation (Wixela Inhub) losartan 50 mg tablet 25 mg (1/2 x 50 mg) PO QAM #45 tabs 02/07/23 03/01/23 Rx metformin 500 mg tablet 1,000 mg (2 x 500 mg) PO BID #360 02/07/23 03/01/23 Rx tabs allopurinol 100 mg tablet 200 mg (2 x 100 mg) PO QAM #180 02/15/23 03/01/23 Rx tabs Patient History Medical History Macular degeneration patient states will be starting AREDS after surgery Dysphagia per PCP notes felt to be due to pills being dry Limb alert care status right arm BPPV (benign paroxysmal positional vertigo) controlled, stable per pt History of gout last episode several yrs ago Urinary incontinence History of breast cancer dx'd approx 5 years ago. Rt breast. surgery + radiation-limb restriction SVT (supraventricular tachycardia) occasional palpitations with dizziness Atrial fibrillation "I went into A.fib during a stress test." states resolved spontaneously. 04/2022 [facility]. Asthma uses PRN inh daily Diabetic peripheral neuropathy feet Diabetes mellitus NIDDM Hyperlipidemia Hypertension controlled, stable per pt Hypothyroidism Morbid obesity Multiple thyroid nodules Sleep apnea BiPAP-compliant Surgical History History of oral surgery History of wisdom tooth extraction History of lumpectomy of right breast x 2 (benign x 1, malignant x 1) History of lumpectomy of left breast benign History of breast biopsy several-with initial breast biopsy-35 years ago-reaction to sodium pentathol- slow to wake denies needing re-intubation H/O colonoscopy 02/24/15 repeat 10yrs Family History Mother Kidney disease COPD (chronic obstructive pulmonary disease) Depression Hyperlipidemia Hypertension Sleep apnea Father Lung cancer Social History Smoking Status: Never smoker Second Hand Exposure: No; Do You Dip or Chew Tobacco: No; Hx Alcohol Use: Yes Hx Substance Use: No Preferred Language: Czech Communication Ability: Effective Grinder Tender Required: No Beliefs That Will Affect Care: [facility] Beliefs: Uatsdin marital status: Single Current Living Situation: Alone Feels Safe at Home: Yes Safety Concerns: Feels Safe At This Time Assistive Devices: Cane and Glasses Review of Systems Review of Systems: All systems reviewed & are unremarkable except as noted in HPI & below Physical Exam Constitutional: WD/WN, vitals as above Eyes: + anicteric sclerae; normal pupil size Respiratory: normal respiratory effort, lungs clear to auscultation Cardiovascular: RRR, no murmur, no edema Gastrointestinal (Abdomen): normal bowel sounds, soft, nontender, no hepatosplenomegaly Musculoskeletal: no cyanosis or clubbing, extremities motor strength 5/5 Skin: no rashes, warm and dry Neurologic: moves all extremities and awake; not confused Psychiatric: A+Ox3, euthymic affect Results & Data Results & Data Vital Signs (Past 12 Hours) Vital Signs Temp Pulse Pulse Resp BP Pulse Ox O2 Del Method 03/01/23 19:19 36.6 C 78 18 97/56 L 93 Room Air 03/01/23 17:26 76 18 94 Room Air 03/01/23 17:00 36.5 C 76 18 118/71 95 Room Air 03/01/23 16:00 36.5 C 70 16 126/65 93 Room Air 03/01/23 15:30 36.5 C 74 18 112/70 95 Room Air 03/01/23 15:00 Nasal Cannula 03/01/23 15:00 36.7 C 73 16 125/76 98 Nasal Cannula 03/01/23 14:45 63 15 131/71 94 Nasal Cannula 03/01/23 14:30 36.6 C 68 17 140/69 95 Nasal Cannula 03/01/23 14:20 70 15 140/72 93 Room Air 03/01/23 14:10 76 15 139/72 93 Room Air 03/01/23 14:00 36.6 C 83 17 139/72 95 Oxymask O2 Flow Rate 03/01/23 19:19 03/01/23 17:26 03/01/23 17:00 03/01/23 16:00 03/01/23 15:30 03/01/23 15:00 2 03/01/23 15:00 2 03/01/23 14:45 2 03/01/23 14:30 2 03/01/23 14:20 03/01/23 14:10 03/01/23 14:00 5 PG Care Time/CCT Total # of Minutes Spent Total Time Spent with Patient: Total time spent is greater than 50% in coordination of care (as documented) at patient's floor/unit and/or counseling patient: Coding Level of Care Code 78996 IN/OBS CONSULT LVL 4,60M Diagnoses Primary osteoarthritis of right knee M17.11 Gout M10.9 Diabetes mellitus E11.9 Asthma J45.909 Hypertension I10 Hyperlipidemia E78.5 Hypothyroidism E03.9 Sleep apnea G47.30
[2023-03-01] MEDS: SENNA 8.6 MG TAB PO SCH (21:54)
[2023-03-01] MEDS: CYANOCOBALAMIN (B-12) 500 MCG TABLET PO SCH (21:54)
[2023-03-01] MEDS: ANASTROZOLE 1 MG TAB PO SCH (21:54)
[2023-03-01] MEDS: ACETAMINOPHEN 500 MG TAB PO SCH (21:54)
[2023-03-01] MEDS: PRAVASTATIN SOD 20 MG TAB PO SCH (21:54)
[2023-03-01] MEDS: DOCUSATE SODIUM 100 MG CAP PO SCH (21:54)
[2023-03-01] MEDS: CALCIUM CARBONATE 1250MG TAB PO SCH (21:54)
[2023-03-02] MEDS: oxyCODONE HCL IR 5 MG TAB (IMMEDIATE RELEASE) PO PRN ×5 (00:09→19:48)
[2023-03-02] MEDS: ACETAMINOPHEN 500 MG TAB PO SCH ×3 (05:09→22:44)
[2023-03-02] MEDS: LEVOTHYROXINE SODIUM 50 MCG TABLET PO SCH (06:11)
[2023-03-02 06:15] LABS: Hematocrit (blood only) 32.6 % (37.0-47.0); Hemoglobin 10.8 g/dl (12.0-16.0); Mean Corpuscular Hemoglobin 29.3 pg (25.0-34.0); Mean Corpuscular Hgb Conc 33.1 g/dL (32.0-36.0); Mean Corpuscular Volume 88.6 fL (80.0-100.0); Mean Platelet Volume 10.4 fL (9.4-12.4); Platelet Count 199 K/uL (130-400); RDW Coefficient of Variation 14.4 % (11.5-14.5); RDW Standard Deviation 46.5 fL (36.4-46.3); Red Blood Count 3.68 M/uL (4.20-5.40); White Blood Count 11.09 K/ul (4.8-10.8)
[2023-03-02 06:39] LABS: BUN Creatinine Ratio 20.2 (10-20); Calcium 8.6 mg/dl (8.6-10.3); Creatinine Clr Calc Pharmacy 85.7 ml/min; Est GFR (African American) 84.5 ml/min; Est GFR (Non-African American) 72.9 ml/min; Potassium 4.3 mmol/L (3.5-5.1)
[2023-03-02] MEDS ORDERED: LANTUS PER UNIT CHARGE SC ONE (08:00)
[2023-03-02] MEDS: MULTIVITAMIN TAB PO SCH (08:40)
[2023-03-02] MEDS: DOCUSATE SODIUM 100 MG CAP PO SCH ×2 (08:40→22:44)
[2023-03-02] MEDS: allopurinoL 100 MG TAB PO SCH (08:41)
[2023-03-02] MEDS: RIVAROXABAN 10 MG TABLET PO SCH (08:41)
[2023-03-02] MEDS: POTASSIUM CHLORIDE 10 MEQ TABCR PO SCH (08:41)
[2023-03-02] MEDS: FLUTICASONE/VILANTEROL 200/25MCG 14 PUFFS/INHALER INH SCH (08:41)
[2023-03-02] MEDS: INSULIN ASPART PER UNIT CHARGE SC SCH ×4 (08:43→22:04)
[2023-03-02] MEDS ORDERED: FUROSEMIDE 40 MG TAB PO SCH (09:00)
[2023-03-02] MEDS ORDERED: LOSARTAN POTASSIUM 25 MG TAB PO SCH (09:00)
--- NOTE | 2023-03-02 09:42 | Orthopedic Progress Note ---
Date of Service March 02, 2023 Assessment & Plan (1) Primary osteoarthritis of right knee: Plan: Postop day #1 right total knee arthroplasty -PT/OT -Pain management as written -DVT prophylaxis: SCDs, teds, Xarelto 10 mg daily -A.m. labs: Hemoglobin 10.8, acute blood loss anemia due to surgical loss versus dilutional. Mild leukocytosis likely due to surgical stress versus perioperative steroids. Patient is asymptomatic. -Discharge planning: Patient is concerned about going home as she lives alone. She is requesting inpatient rehab. Case management consult has been placed. Admission and Anticipated Discharge Date Admission Date: March 01, 2023 Subjective Patient is postop day #1 right total knee arthroplasty. She is having mild to moderate discomfort in her knee this morning but is controlled. Has been ambulating well. No other complaints. Denies chest pain, shortness of breath, nausea/vomiting/diarrhea, headaches or dizziness. Review of Systems Review of Systems: All systems reviewed & are unremarkable except as noted in Subjective Physical Exam Physical Exam: Right knee: Dressings clean, dry, intact. Toes are mobile with good dorsiflex ion. No calf tenderness. Able to straight leg raise. Distal neurovascular status and sensation is grossly intact. Results & Data Vital Signs (Past 12 Hours) Vital Signs Temp Pulse Resp BP Pulse Ox O2 Del Method 03/02/23 02:17 37.2 C 68 18 116/78 93 Room Air 03/01/23 23:27 36.9 C 59 L 18 105/64 95 Room Air 03/01/23 21:45 Room Air 03/01/23 21:07 36.6 C 75 18 100/63 96 Room Air Laboratory Results Lab Results 03/01/23 03/01/23 03/01/23 Range/Units 09:36 14:12 16:23 WBC (4.8-10.8) K/ul RBC (4.20-5.40) M/uL Hgb (12.0-16.0) g/dl Hct (37.0-47.0) % MCV (80.0-100.0) fL MCH (25.0-34.0) pg MCHC (32.0-36.0) g/dL RDW Std Deviation (36.4-46.3) fL RDW Coeff of Latisha (11.5-14.5) % Plt Count (130-400) K/uL MPV (9.4-12.4) fL Sodium (136-145) mmol/L Potassium (3.5-5.1) mmol/L Chloride (98-107) mmol/L Carbon Dioxide (21-32) mmol/L Anion Gap (3-11) BUN (6-23) mg/dl Creatinine (0.6-1.2) mg/dl Est Cr Clr Drug Dosing ml/min Est GFR ( Amer) ml/min Est GFR (Non-Af Amer) ml/min BUN/Creatinine Ratio (10-20) Glucose (70-99(Fasting)) mg/dl POC Glucose 142 H 131 H 169 H (70-99) mg/dl Calcium (8.6-10.3) mg/dl 03/01/23 03/01/23 03/02/23 Range/Units 19:55 22:17 05:30 WBC 11.09 H (4.8-10.8) K/ul RBC 3.68 L (4.20-5.40) M/uL Hgb 10.8 L (12.0-16.0) g/dl Hct 32.6 L (37.0-47.0) % MCV 88.6 (80.0-100.0) fL MCH 29.3 (25.0-34.0) pg MCHC 33.1 (32.0-36.0) g/dL RDW Std Deviation 46.5 H (36.4-46.3) fL RDW Coeff of Latisha 14.4 (11.5-14.5) % Plt Count 199 (130-400) K/uL MPV 10.4 (9.4-12.4) fL Sodium 135 L (136-145) mmol/L Potassium 4.3 (3.5-5.1) mmol/L Chloride 103 (98-107) mmol/L Carbon Dioxide 24 (21-32) mmol/L Anion Gap 8 (3-11) BUN 17 (6-23) mg/dl Creatinine 0.84 (0.6-1.2) mg/dl Est Cr Clr Drug Dosing 85.7 ml/min Est GFR ( Amer) 84.5 ml/min Est GFR (Non-Af Amer) 72.9 ml/min BUN/Creatinine Ratio 20.2 H (10-20) Glucose 157 H (70-99(Fasting)) mg/dl POC Glucose 231 H 222 H (70-99) mg/dl Calcium 8.6 (8.6-10.3) mg/dl 03/02/23 Range/Units 07:35 WBC (4.8-10.8) K/ul RBC (4.20-5.40) M/uL Hgb (12.0-16.0) g/dl Hct (37.0-47.0) % MCV (80.0-100.0) fL MCH (25.0-34.0) pg MCHC (32.0-36.0) g/dL RDW Std Deviation (36.4-46.3) fL RDW Coeff of Latisha (11.5-14.5) % Plt Count (130-400) K/uL MPV (9.4-12.4) fL Sodium (136-145) mmol/L Potassium (3.5-5.1) mmol/L Chloride (98-107) mmol/L Carbon Dioxide (21-32) mmol/L Anion Gap (3-11) BUN (6-23) mg/dl Creatinine (0.6-1.2) mg/dl Est Cr Clr Drug Dosing ml/min Est GFR ( Amer) ml/min Est GFR (Non-Af Amer) ml/min BUN/Creatinine Ratio (10-20) Glucose (70-99(Fasting)) mg/dl POC Glucose 150 H (70-99) mg/dl Calcium (8.6-10.3) mg/dl
[2023-03-02] MEDS: LOSARTAN POTASSIUM 25 MG TAB PO SCH (10:20)
[2023-03-02] MEDS: FUROSEMIDE 40 MG TAB PO SCH (10:20)
[2023-03-02] MEDS: metFORMIN HCL 500 MG TAB PO SCH ×2 (11:07→16:49)
--- NOTE | 2023-03-02 15:22 | Hospitalist Progress Note ---
Date of Service March 02, 2023 Assessment & Plan (1) Primary osteoarthritis of right knee: Plan: Postoperative day #1 after right total knee arthroplasty. Orthopedic management. (2) Acute blood loss anemia: Plan: Mild. Serial labs (3) Diabetes mellitus: Plan: She is insulin angelito. Lantus started on admission has been discontinued. Metformin restarted. Sliding scale coverage as needed. ADA diet (4) Asthma: Plan: Stable. Continue routine inhalers (5) Hypertension: Plan: Stable. Losartan restarted. (6) Hyperlipidemia: Plan: Stable. Continue pravastatin (7) Hypothyroidism: Plan: Stable. TSH WNL in October. Continue current levothyroxine dosing (8) Sleep apnea: Plan: Stable. Patient has her own BiPAP. Plan Eventual discharge by primary service to rehab facility Admission and Anticipated Discharge Date Admission Date: March 01, 2023 Subjective Alert and oriented. No distress. No complaints. Metformin and Lasix have been restarted. She is insulin angelito and Lantus that was started on admission has been discontinued. Sliding scale coverage as needed. Postoperative day #1. Hemoglobin is down slightly to 10.8. Will follow. She lives alone and probably will need placement at the time of discharge. OT and PT assessments have been ordered Review of Systems 2 Review of Systems: Constitutional-no fever or chills ENT-no blurred vision, no double vision, no epistaxis, no sore throat Respiratory-no cough, no wheezing, no shortness of breath Cardiac-no palpitations, no chest pain, no syncope GI-no nausea, vomiting, diarrhea, melena, hematochezia -no urinary retention, no urinary incontinence, no dysuria, no hematuria Musculoskeletal-postoperative right knee discomfort as expected. No muscle tenderness Skin-no bruising, no rashes, no pruritus Neuro-no isolated weakness, no paresthesia, no weakness Psych-no depression, no anxiety Physical Exam 2 Physical Exam: General-alert and oriented x3, no fever, no chills. Morbidly obese HEENT-head atraumatic and normocephalic, pupils equal and reactive to light, extraocular muscles intact Neck-no lymphadenopathy or thyromegaly, trachea midline Chest-clear to auscultation. No rales, wheezing or rhonchi Cardiac-regular rate and rhythm, normal S1 and S2 Abdomen-normal bowel sounds, nontender, no hepatosplenomegaly Extremities-postoperative right knee discomfort as expected. Surgical site is clean and dry Neuro-cranial nerves II through XII intact, motor and sensory function within normal limits, strength symmetrical, no focal deficits Psych-normal affect, normal mood Results & Data Results & Data Vital Signs (Past 12 Hours) Vital Signs Temp Pulse Resp BP Pulse Ox O2 Del Method 03/02/23 11:37 36.6 C 64 18 137/76 97 Room Air 03/02/23 09:39 Room Air 03/02/23 07:40 36.8 C 63 18 163/79 H 97 Room Air Laboratory Results 03/02/23 05:30 03/02/23 05:30 PG Care Time/CCT Total # of Minutes Spent Total Time Spent with Patient: Total time spent is greater than 50% in coordination of care (as documented) at patient's floor/unit and/or counseling patient: Coding Level of Care Code 64556 SUB INP/OBS CARE 3/50MIN Diagnoses Primary osteoarthritis of right knee M17.11 Acute blood loss anemia D62 Diabetes mellitus E11.9 Asthma J45.909 Hypertension I10 Hyperlipidemia E78.5 Hypothyroidism E03.9 Sleep apnea G47.30
[2023-03-02] MEDS: CALCIUM CARBONATE 1250MG TAB PO SCH (22:43)
[2023-03-02] MEDS: CYANOCOBALAMIN (B-12) 500 MCG TABLET PO SCH (22:43)
[2023-03-02] MEDS: PRAVASTATIN SOD 20 MG TAB PO SCH (22:44)
[2023-03-02] MEDS: SENNA 8.6 MG TAB PO SCH (22:44)
[2023-03-02] MEDS: ANASTROZOLE 1 MG TAB PO SCH (23:24)
[2023-03-03] MEDS: oxyCODONE HCL IR 5 MG TAB (IMMEDIATE RELEASE) PO PRN ×3 (03:52→11:45)
[2023-03-03] MEDS: ACETAMINOPHEN 500 MG TAB PO SCH ×2 (05:27→14:12)
[2023-03-03] MEDS: LEVOTHYROXINE SODIUM 50 MCG TABLET PO SCH (05:28)
[2023-03-03 05:46] LABS: Basophils # (auto) 0.03 K/uL (0.00-0.20); Basophils % (auto) 0.4 %; Eosinophils # (auto) 0.08 K/uL (0.00-0.50); Eosinophils % (auto) 1.1 %; Hematocrit (blood only) 31.6 % (37.0-47.0); Hemoglobin 10.2 g/dl (12.0-16.0); Immature Granulocytes # (auto) 0.04 K/uL (0.01-0.20); Immature Granulocytes % (auto) 0.5 %; Lymphocytes # (auto) 1.64 K/uL (1.20-3.40); Lymphocytes % (auto) 21.6 %; Mean Corpuscular Hemoglobin 28.9 pg (25.0-34.0); Mean Corpuscular Hgb Conc 32.3 g/dL (32.0-36.0); Mean Corpuscular Volume 89.5 fL (80.0-100.0); Mean Platelet Volume 10.3 fL (9.4-12.4); Monocytes # (auto) 0.79 K/uL (0.11-0.59); Monocytes % (auto) 10.4 %; Neutrophils # (auto) 5.02 K/uL (1.40-6.50); Platelet Count 135 K/uL (130-400); RDW Coefficient of Variation 14.7 % (11.5-14.5); RDW Standard Deviation 47.5 fL (36.4-46.3); Red Blood Count 3.53 M/uL (4.20-5.40)
[2023-03-03 06:04] LABS: Calcium 8.9 mg/dl (8.6-10.3); Potassium 4.1 mmol/L (3.5-5.1)
[2023-03-03 06:10] LABS: BUN Creatinine Ratio 21.1 (10-20); Est GFR (African American) 77.8 ml/min; Est GFR (Non-African American) 67.1 ml/min
[2023-03-03] MEDS: FUROSEMIDE 40 MG TAB PO SCH (07:46)
[2023-03-03] MEDS: FLUTICASONE/VILANTEROL 200/25MCG 14 PUFFS/INHALER INH SCH (07:46)
[2023-03-03] MEDS: MULTIVITAMIN TAB PO SCH (07:47)
[2023-03-03] MEDS: allopurinoL 100 MG TAB PO SCH (07:47)
[2023-03-03] MEDS: DOCUSATE SODIUM 100 MG CAP PO SCH (07:47)
[2023-03-03] MEDS: LOSARTAN POTASSIUM 25 MG TAB PO SCH (07:48)
[2023-03-03] MEDS: INSULIN ASPART PER UNIT CHARGE SC SCH ×2 (07:48→11:41)
[2023-03-03] MEDS: metFORMIN HCL 500 MG TAB PO SCH (07:48)
[2023-03-03] MEDS: RIVAROXABAN 10 MG TABLET PO SCH (07:48)
[2023-03-03] MEDS: POTASSIUM CHLORIDE 10 MEQ TABCR PO SCH (07:48)
--- NOTE | 2023-03-03 08:18 | Orthopedic Progress Note ---
Date of Service March 03, 2023 Assessment & Plan (1) Primary osteoarthritis of right knee: Plan: Postop day #2 right total knee arthroplasty -PT/OT -Pain management as written -DVT prophylaxis: SCDs, teds, Xarelto 10 mg daily -A.m. labs: Hemoglobin stable at 10.2, acute blood loss anemia due to surgical loss versus dilutional. Mild leukocytosis likely due to surgical stress versus perioperative steroids. Patient is asymptomatic. This is resolved. -Discharge planning: Plan on [facility]. Stable for d/c once bed available. Admission and Anticipated Discharge Date Admission Date: March 01, 2023 Subjective Patient has pain, controlled with ordered medication. Had some nausea overnight, improved this am. No other complaints. Review of Systems Review of Systems: All systems reviewed & are unremarkable except as noted in Subjective Physical Exam Physical Exam: Right knee: Dressings clean, dry, intact. Toes are mobile with good dorsiflexion. No calf tenderness. Able to straight leg raise. Distal neurovascular status and sensation is grossly intact. Results & Data Vital Signs (Past 12 Hours) Vital Signs Temp Pulse Resp BP Pulse Ox O2 Del Method 03/03/23 07:27 37.2 C 77 18 129/70 92 Room Air 03/02/23 22:45 Room Air
--- NOTE | 2023-03-03 13:17 | Hospitalist Progress Note ---
Date of Service March 03, 2023 Assessment & Plan (1) Primary osteoarthritis of right knee: Plan: Postoperative day #2 after right total knee arthroplasty. Orthopedic management. (2) Acute blood loss anemia: Plan: Mild. Stable. Serial labs (3) Diabetes mellitus: Plan: She is insulin angelito. Lantus started on admission has been discontinued. Metformin restarted. Sliding scale coverage as needed. ADA diet . Glucose today, March 03, is 124 (4) Asthma: Plan: Stable. Continue routine inhalers (5) Hypertension: Plan: Stable. Losartan restarted. (6) Hyperlipidemia: Plan: Stable. Continue pravastatin (7) Hypothyroidism: Plan: Stable. TSH WNL in October. Continue current levothyroxine dosing (8) Sleep apnea: Plan: Stable. Patient has her own BiPAP. Plan Possible discharge later today, March 03, by primary service to [facility]. Admission and Anticipated Discharge Date Admission Date: March 01, 2023 Subjective Medically stable. No new problems. Possible discharge to [facility] later today, March 03 Review of Systems 2 Review of Systems: Constitutional-no fever or chills ENT-no blurred vision, no double vision, no epistaxis, no sore throat Respiratory-no cough, no wheezing, no shortness of breath Cardiac-no palpitations, no chest pain, no syncope GI-no nausea, vomiting, diarrhea, melena, hematochezia -no urinary retention, no urinary incontinence, no dysuria, no hematuria Musculoskeletal-postoperative right knee discomfort as expected. No muscle tenderness Skin-no bruising, no rashes, no pruritus Neuro-no isolated weakness, no paresthesia, no weakness Psych-no depression, no anxiety Physical Exam 2 Physical Exam: General-alert and oriented x3, no fever, no chills. Morbidly obese HEENT-head atraumatic and normocephalic, pupils equal and reactive to light, extraocular muscles intact Neck-no lymphadenopathy or thyromegaly, trachea midline Chest-clear to auscultation. No rales, wheezing or rhonchi Cardiac-regular rate and rhythm, normal S1 and S2 Abdomen-normal bowel sounds, nontender, no hepatosplenomegaly Extremities-postoperative right knee discomfort as expected. Surgical site is clean and dry Neuro-cranial nerves II through XII intact, motor and sensory function within normal limits, strength symmetrical, no focal deficits Psych-normal affect, normal mood Results & Data Results & Data Vital Signs (Past 12 Hours) Vital Signs Temp Pulse Resp BP Pulse Ox O2 Del Method 03/03/23 10:43 37.2 C 77 18 129/70 92 03/03/23 07:27 37.2 C 77 18 129/70 92 Room Air Laboratory Results 03/03/23 05:21 03/03/23 05:21 PG Care Time/CCT Total # of Minutes Spent Total Time Spent with Patient: Total time spent is greater than 50% in coordination of care (as documented) at patient's floor/unit and/or counseling patient: Coding Level of Care Code 69026 SUB INP/OBS CARE 2/35MIN Diagnoses Primary osteoarthritis of right knee M17.11 Acute blood loss anemia D62 Diabetes mellitus E11.9 Asthma J45.909 Hypertension I10 Hyperlipidemia E78.5 Hypothyroidism E03.9 Sleep apnea G47.30
--- NOTE | 2023-03-03 15:18 | Discharge Summary ---
Date of Service March 03, 2023 Admission HPI Per Admitting Provider 67yo female with PMHx significant for HTN, high cholesterol, DM2, hypothyroidism, SVT, hx of afib, RUFINA who presents with ongoing right knee pain. Pain is interfering with her daily activities. She has failed conservative measures and would like to proceed with surgical management. Patient denies headaches, sweats, fevers, chills, double vision, blurred vision, cough, sore throat, dysphagia, chest pain, sob, wheezing, n/v/d/c, numbness, tingling, fatigue, urinary symptoms, mood disorders. ROS positive for right knee pain and stiffness. Admission Exam Per Admitting Provider Constitutional: well developed and well nourished; no acute distress Eyes: PERRL, conjunctivae normal, anicteric sclerae ENMT: external ear and nose normal, oropharynx normal Neck: trachea midline, no thyromegaly Respiratory: normal respiratory effort, lungs clear to auscultation Cardiovascular: RRR, no murmur, no edema Musculoskeletal: Right knee: Varus alignment. Medial joint line tenderness, stable to valgus and varus stress. ROM 0-115 degres. Skin: no rashes, warm and dry Neurologic: patellar DTR's 2+ bilat, sensation intact Psychiatric: A+Ox3, euthymic affect Principal Diagnosis Right knee osteoarthritis Discharge Exam Right knee: Dressings clean, dry, intact. Toes are mobile with good dorsiflexion. No calf tenderness. Able to straight leg raise. Distal neur ovascular status and sensation is grossly intact. Discharge Data Allergies Allergy/AdvReac Type Severity Reaction Status Date / Time eucalyptus Allergy Severe Rash Verified 03/01/23 08:58 shrimp Allergy Severe mouth Verified 03/01/23 08:58 blisters amoxicillin Allergy Anaphylaxis Verified 03/01/23 08:58 Sulfa (Sulfonamide Allergy Rash Verified 03/01/23 08:58 Antibiotics) sodium pentothal Allergy Swelling Uncoded 02/07/23 13:02 of Lip/Tongue/Throat Consultations 03/01/23 14:52 Consult Hospitalist Routine Procedures Performed Operation Date: 03/01/23 11:50 Actual Procedures p Right Total Knee Arthroplasty(Right) - Phil Freeman MD Ordered Studies 03/01/23 05:00 US - OR guided needle placemen Routine Hospital Course (1) Primary osteoarthritis of right knee: Postop day #2 right total knee arthroplasty -PT/OT -Pain management as written -DVT prophylaxis: SCDs, teds, Xarelto 10 mg daily -A.m. labs: Hemoglobin stable at 10.2, acute blood loss anemia due to surgical loss versus dilutional. Mild leukocytosis likely due to surgical stress versus perioperative steroids. Patient is asymptomatic. This is resolved. -Discharge planning: Plan on [facility]. Stable for d/c once bed available. Postop day #1 right total knee arthroplasty -PT/OT -Pain management as written -DVT prophylaxis: SCDs, teds, Xarelto 10 mg daily -A.m. labs: Hemoglobin 10.8, acute blood loss anemia due to surgical loss versus dilutional. Mild leukocytosis likely due to surgical stress versus perioperative steroids. Patient is asymptomatic. -Discharge planning: Patient is concerned about going home as she lives alone. She is requesting inpatient rehab. Case management consult has been placed. Lab Results 03/01/23 03/01/23 03/01/23 Range/Units 09:36 14:12 16:23 WBC (4.8-10.8) K/ul RBC (4.20-5.40) M/uL Hgb (12.0-16.0) g/dl Hct (37.0-47.0) % MCV (80.0-100.0) fL MCH (25.0-34.0) pg MCHC (32.0-36.0) g/dL RDW Std Deviation (36.4-46.3) fL RDW Coeff of Latisha (11.5-14.5) % Plt Count (130-400) K/uL MPV (9.4-12.4) fL Immature Gran % (Auto) % Neut % (Auto) % Lymph % (Auto) % [place] % (Auto) % Eos % (Auto) % Baso % (Auto) % Neut # (Auto) (1.40-6.50) K/uL Lymph # (Auto) (1.20-3.40) K/uL [place] # (Auto) (0.11-0.59) K/uL Eos # (Auto) (0.00-0.50) K/uL Baso # (Auto) (0.00-0.20) K/uL Immature Gran # (Auto) (0.01-0.20) K/uL Sodium (136-145) mmol/L Potassium (3.5-5.1) mmol/L Chloride (98-107) mmol/L Carbon Dioxide (21-32) mmol/L Anion Gap (3-11) BUN (6-23) mg/dl Creatinine (0.6-1.2) mg/dl Est Cr Clr Drug Dosing ml/min Est GFR ( Amer) ml/min Est GFR (Non-Af Amer) ml/min BUN/Creatinine Ratio (10-20) Glucose (70-99(Fasting)) mg/dl POC Glucose 142 H 131 H 169 H (70-99) mg/dl Calcium (8.6-10.3) mg/dl 03/01/23 03/01/23 03/02/23 Range/Units 19:55 22:17 05:30 WBC 11.09 H (4.8-10.8) K/ul RBC 3.68 L (4.20-5.40) M/uL Hgb 10.8 L (12.0-16.0) g/dl Hct 32.6 L (37.0-47.0) % MCV 88.6 (80.0-100.0) fL MCH 29.3 (25.0-34.0) pg MCHC 33.1 (32.0-36.0) g/dL RDW Std Deviation 46.5 H (36.4-46.3) fL RDW Coeff of Latisha 14.4 (11.5-14.5) % Plt Count 199 (130-400) K/uL MPV 10.4 (9.4-12.4) fL Immature Gran % (Auto) % Neut % (Auto) % Lymph % (Auto) % [place] % (Auto) % Eos % (Auto) % Baso % (Auto) % Neut # (Auto) (1.40-6.50) K/uL Lymph # (Auto) (1.20-3.40) K/uL [place] # (Auto) (0.11-0.59) K/uL Eos # (Auto) (0.00-0.50) K/uL Baso # (Auto) (0.00-0.20) K/uL Immature Gran # (Auto) (0.01-0.20) K/uL Sodium 135 L (136-145) mmol/L Potassium 4.3 (3.5-5.1) mmol/L Chloride 103 (98-107) mmol/L Carbon Dioxide 24 (21-32) mmol/L Anion Gap 8 (3-11) BUN 17 (6-23) mg/dl Creatinine 0.84 (0.6-1.2) mg/dl Est Cr Clr Drug Dosing 85.7 ml/min Est GFR ( Amer) 84.5 ml/min Est GFR (Non-Af Amer) 72.9 ml/min BUN/Creatinine Ratio 20.2 H (10-20) Glucose 157 H (70-99(Fasting)) mg/dl POC Glucose 231 H 222 H (70-99) mg/dl Calcium 8.6 (8.6-10.3) mg/dl 03/02/23 03/02/23 03/02/23 Range/Units 07:35 11:35 16:37 WBC (4.8-10.8) K/ul RBC (4.20-5.40) M/uL Hgb (12.0-16.0) g/dl Hct (37.0-47.0) % MCV (80.0-100.0) fL MCH (25.0-34.0) pg MCHC (32.0-36.0) g/dL RDW Std Deviation (36.4-46.3) fL RDW Coeff of Latisha (11.5-14.5) % Plt Count (130-400) K/uL MPV (9.4-12.4) fL Immature Gran % (Auto) % Neut % (Auto) % Lymph % (Auto) % [place] % (Auto) % Eos % (Auto) % Baso % (Auto) % Neut # (Auto) (1.40-6.50) K/uL Lymph # (Auto) (1.20-3.40) K/uL [place] # (Auto) (0.11-0.59) K/uL Eos # (Auto) (0.00-0.50) K/uL Baso # (Auto) (0.00-0.20) K/uL Immature Gran # (Auto) (0.01-0.20) K/uL Sodium (136-145) mmol/L Potassium (3.5-5.1) mmol/L Chloride (98-107) mmol/L Carbon Dioxide (21-32) mmol/L Anion Gap (3-11) BUN (6-23) mg/dl Creatinine (0.6-1.2) mg/dl Est Cr Clr Drug Dosing ml/min Est GFR ( Amer) ml/min Est GFR (Non-Af Amer) ml/min BUN/Creatinine Ratio (10-20) Glucose (70-99(Fasting)) mg/dl POC Glucose 150 H 114 H 103 H (70-99) mg/dl Calcium (8.6-10.3) mg/dl 03/02/23 03/03/23 03/03/23 Range/Units 20:35 05:21 07:24 WBC 7.60 (4.8-10.8) K/ul RBC 3.53 L (4.20-5.40) M/uL Hgb 10.2 L (12.0-16.0) g/dl Hct 31.6 L (37.0-47.0) % MCV 89.5 (80.0-100.0) fL MCH 28.9 (25.0-34.0) pg MCHC 32.3 (32.0-36.0) g/dL RDW Std Deviation 47.5 H (36.4-46.3) fL RDW Coeff of Latisha 14.7 H (11.5-14.5) % Plt Count 135 (130-400) K/uL MPV 10.3 (9.4-12.4) fL Immature Gran % (Auto) 0.5 % Neut % (Auto) 66.0 % Lymph % (Auto) 21.6 % [place] % (Auto) 10.4 % Eos % (Auto) 1.1 % Baso % (Auto) 0.4 % Neut # (Auto) 5.02 (1.40-6.50) K/uL Lymph # (Auto) 1.64 (1.20-3.40) K/uL [place] # (Auto) 0.79 H (0.11-0.59) K/uL Eos # (Auto) 0.08 (0.00-0.50) K/uL Baso # (Auto) 0.03 (0.00-0.20) K/uL Immature Gran # (Auto) 0.04 (0.01-0.20) K/uL Sodium 136 (136-145) mmol/L Potassium 4.1 (3.5-5.1) mmol/L Chloride 102 (98-107) mmol/L Carbon Dioxide 27 (21-32) mmol/L Anion Gap 7 (3-11) BUN 19 (6-23) mg/dl Creatinine 0.90 (0.6-1.2) mg/dl Est Cr Clr Drug Dosing 80.0 ml/min Est GFR ( Amer) 77.8 ml/min Est GFR (Non-Af Amer) 67.1 ml/min BUN/Creatinine Ratio 21.1 H (10-20) Glucose 124 H (70-99(Fasting)) mg/dl POC Glucose 105 H 117 H (70-99) mg/dl Calcium 8.9 (8.6-10.3) mg/dl 03/03/23 Range/Units 11:39 WBC (4.8-10.8) K/ul RBC (4.20-5.40) M/uL Hgb (12.0-16.0) g/dl Hct (37.0-47.0) % MCV (80.0-100.0) fL MCH (25.0-34.0) pg MCHC (32.0-36.0) g/dL RDW Std Deviation (36.4-46.3) fL RDW Coeff of Latisha (11.5-14.5) % Plt Count (130-400) K/uL MPV (9.4-12.4) fL Immature Gran % (Auto) % Neut % (Auto) % Lymph % (Auto) % [place] % (Auto) % Eos % (Auto) % Baso % (Auto) % Neut # (Auto) (1.40-6.50) K/uL Lymph # (Auto) (1.20-3.40) K/uL [place] # (Auto) (0.11-0.59) K/uL Eos # (Auto) (0.00-0.50) K/uL Baso # (Auto) (0.00-0.20) K/uL Immature Gran # (Auto) (0.01-0.20) K/uL Sodium (136-145) mmol/L Potassium (3.5-5.1) mmol/L Chloride (98-107) mmol/L Carbon Dioxide (21-32) mmol/L Anion Gap (3-11) BUN (6-23) mg/dl Creatinine (0.6-1.2) mg/dl Est Cr Clr Drug Dosing ml/min Est GFR ( Amer) ml/min Est GFR (Non-Af Amer) ml/min BUN/Creatinine Ratio (10-20) Glucose (70-99(Fasting)) mg/dl POC Glucose 116 H (70-99) mg/dl Calcium (8.6-10.3) mg/dl Total Time Total Time Spent Total Time Spent (In Minutes): 20 Discharge Plan Discharge Items Patient Disposition: Transfer Inpatient Rehab Fac Reason For Visit: Right Knee Osteoarthritis Discharge Diagnosis: Right knee osteoarthritis Activity: Per Instructions section Non-emergency contact: Surgeon Call non-emergency contact if: you have any medication questions, your pain is not controlled, you have a fever, your temperature is above 101, your wound has increased redness and your wound has increased drainage Follow-up/Referrals: Tricia Lo DO [Primary Care Provider] - Diet: Regular Addtl Attending Provider Instructions: ACTIVITY RECOMMENDATIONS: SELF CARE INSTRUCTIONS AFTER TOTAL KNEE REPLACEMENT A. You may need to continue a physical therapy program after discharge from the hospital. There are several options available to you. Your doctor will assist you in selecting the best one for you. 1. An out-patient facility 2 to 3 times a week for therapy or home therapy. 2. Continue working on all exercises taught to you in the hospital. Your goals should be to increase bending of your knee to 90 degrees and beyond and to fully straighten your knee. B. You may progress at your own pace from walking with a walker or crutches to a cane; then to no assistive devices. C. Make walking a part of your daily routine. Be up as much as comfortable with rest periods throughout the day. Rest with leg elevation is very important. Use the ice wrap frequently for the first 3-4 weeks. D. There are no restrictions on activities. You may ride in a car, shop, participate in bowling ball engraver and all social activities. E. Wear the long elastic stockings (CECILE hose) 20 hours a day for 2 weeks after surgery. They can be removed several times a day for laundering and for a bath. F. You may shower, no tub baths until cleared by your doctor. SPECIAL CARE INSTRUCTIONS: VERY IMPORTANT TO READ AND REVIEW A. There are a few signs you need to watch for after you are home. Call [facility] if you notice any of the followin. Increased severe knee pain. Some pain is expected especially when you exercise. 2. Increased swelling in your leg or knee; pain or swelling of the calf muscle in either lower leg. 3. Any fluid drainage from the incision. 4. Shortness of breath or chest pain. B. Please call [facility] at if you have any concerns or questions about your operation or recovery. The doctor or his nurse will return your call promptly. C. You must take antibiotics before dental work, bladder, bowel or other surgery. Your doctor will provide you with a permanent care to carry describing this precaution. IMPORTANT: * REMEMBER TO TAKE ASPIRIN, 81 MG, TWICE DAILY FOR 4 WEEKS UNLESS OTHERWISE DIRECTED. THIS IS YOUR BLOOD THINNER. * HIGH RISK PATIENTS MAY BE PRESCRIBED A STRONGER BLOOD THINNER. THIS WILL BE PROVIDED AT DISCHARGE. * CALL IF INCREASED PAIN, REDNESS, DRAINAGE OR FEVER GREATER THAT 101. * WEAR CECILE HOSE 20 HOURS PER DAY FOR 2 WEEKS. There is a large suction dressing covering your incision. This will help pull any excess drainage from the wound and allow your incision to heal properly. You may shower with this if you can keep the unit outside of the shower. If any bleeding or leakage is noted please call your doctor's office. This will remain on your incision for 7 days and then should be removed. This can be done yourself or by the home nursing staff if applicable. The entire unit is disposable once removed. Once removed, keep incision clean and dry. If redness or drainage is noted, please call your surgeon. . IF INCISION IS LEAKING THROUGH DRESSING, CALL THE OFFICE . FOLLOW UP VISIT: If appointment is not already scheduled: Please call [facility] to make a follow-up appointment for 2 weeks after your surgery at . Stand-Alone Forms: My [facility] Skilled Items Patient informed of condition?: Yes DNR: No Discharge Level of Care: Acute rehab Communicable Disease: No Discharge Prognosis: Improving Lines: None Urinary Catheter: No Medications and DC Order Prescriptions: New acetaminophen [Tylenol Extra Strength] 500 mg Tablet 1,000 mg PO Q8 Qty: 60 0RF oxycodone 5 mg Tablet 5 - 10 mg PO .Q4h-6h MDD 6 PRN (Reason: pain) Qty: 30 0RF Rx Instructions: Ongoing therapy, Dr. Freeman supervising Xarelto 10 mg Tablet 10 mg PO DAILY Qty: 30 0RF doxycycline hyclate 100 mg capsule 100 mg PO BID 21 Days Qty: 20 0RF Continued (DME) FreeStyle Lite Strips Strip See Rx Instructions .Route Qty: 100 5RF Rx Instructions: check blood sugar readings bid as directed dx E11.9 (DME) blood-glucose meter [FreeStyle [place] Lite] Kit See Rx Instructions .Route Qty: 1 0RF Rx Instructions: check blood sugar readings bid as directed E11.9 albuterol sulfate 90 mcg/actuation HFA aerosol inhaler 2 puff inhalation Q4H PRN (Reason: shortness of breath or wheezing) Qty: 18 5RF pravastatin 20 mg tablet 20 mg PO HS Qty: 90 3RF Rx Instructions: for cholesterol fluticasone propion-salmeterol [Wixela Inhub] 250-50 mcg/dose blister with device 1 inh inhalation BID Qty: 3 0RF Rx Instructions: replaces Advair metformin 500 mg tablet 1,000 mg PO BID Qty: 360 1RF losartan 50 mg tablet 25 mg PO QAM Qty: 45 3RF allopurinol 100 mg tablet 200 mg PO QAM Qty: 180 1RF mecobalamin (vitamin B12) 1,000 mcg tablet,chewable 1,000 mcg PO QPM (DME) lancets [OneTouch UltraSoft Lancets] Misc See Rx Instructions .ROUTE .MEDSUPPLY Qty: 100 3RF Rx Instructions: check once daily As directed DX:E11.9 calcium carbonate [Calcium 600] 600 mg calcium (1,500 mg) tablet 1,200 mg PO QPM (DME) BIPAP See Rx Instructions .Route .MEDSUPPLY Qty: 1 0RF Rx Instructions: Use nightly as directed multivitamin [Multiple Vitamins] tablet 1 tab PO QPM furosemide 40 mg tablet 40 mg PO QAM anastrozole 1 mg tablet 1 mg PO QPM potassium chloride 10 mEq capsule, extended release 10 meq PO QAM biotin 5 mg capsule 5 mg PO QPM levothyroxine 50 mcg tablet 50 mcg PO QAM L. acidophilus/Bifid. animalis 31 billion cell capsule 1 cap PO QPM Rybelsus 7 mg tablet 7 mg PO QAM Discontinued aspirin 81 mg tablet 81 mg PO QPM Qty: 1 Discharge Orders: Discharge Order (Routine); Ordered 03/03/23 Ordered By: Leonel Alexis Admission Data Admit Date/Time: 03/01/23 14:03 Attending Provider: Phil rFeeman Admit Provider: Phil Freeman Primary Care Provider: Tricia Lo Other Providers: Lloyd Perez; [facility] Other Interventions: Discharge Summary Assessment (RN) Last Done: 03/03/23 10:43
== END 2023-03-03 15:13 ==
LOC: ASU 08:25 → 3E 08:25

== ENCOUNTER 2023-11-22 09:07 | Inpatient (IN) ==
--- NOTE | 2023-10-20 14:25 | PAT Medication Instructions ---
Medication Instructions Date of Service October 20, 2023 Home Medications Medication Instructions Recorded lancets (OneTouch UltraSoft #100 ea 10/24/19 Lancets) BIPAP 16/13 #1 ea 08/18/20 blood sugar diagnostic (FreeStyle #100 ea 10/16/20 Lite Strips) blood-glucose meter (FreeStyle #1 ea 10/16/20 [place] Lite kit) albuterol sulfate 90 mcg/actuation 2 puff inhalation Q4H PRN 08/04/21 aerosol inhaler shortness of breath or wheezing #18 grams losartan 50 mg tablet 25 mg (1/2 x 50 mg) PO QAM #45 tabs 02/07/23 potassium chloride 10 mEq 10 meq PO QAM #90 caps 03/20/23 capsule,extended release pravastatin 20 mg tablet 20 mg PO HS #90 tabs 03/20/23 furosemide 40 mg tablet 40 mg PO QAM #90 tabs 06/09/23 metformin 500 mg tablet 1,000 mg (2 x 500 mg) PO BID #360 08/04/23 tabs fluticasone 250 mcg-salmeterol 50 1 inh inhalation BID #3 Inhalers 08/21/23 mcg/dose blistr powdr for inhalation (Wixela Inhub) allopurinol 100 mg tablet 200 mg (2 x 100 mg) PO QAM #180 09/04/23 tabs mecobalamin (vitamin B12) 1,000 mcg chewable tablet 1,000 mcg PO QPM calcium carbonate (Calcium 600) 1,200 mg PO QPM albuterol sulfate 90 mcg/actuation aerosol inhaler 2 puff inhalation Q4H PRN Lactobacillus acidophilus-Bifidobac.animalis 31 billion cell capsule 1 cap PO QPM anastrozole 1 mg tablet 1 mg PO QPM biotin 5 mg capsule 5 mg PO QPM levothyroxine 50 mcg tablet 50 mcg PO QAM losartan 50 mg tablet 25 mg (1/2 x 50 mg) PO QAM multivitamin (Multiple Vitamins tablet) 1 tab PO QPM potassium chloride 10 mEq capsule,extended release 10 meq PO QAM pravastatin 20 mg tablet 20 mg PO HS turmeric root extract 500 mg capsule 500 mg PO HS furosemide 40 mg tablet 40 mg PO QAM metformin 500 mg tablet 1,000 mg (2 x 500 mg) PO BID fluticasone 250 mcg-salmeterol 50 mcg/dose blistr powdr for inhalation (Wixela Inhub) 1 inh inhalation BID aspirin 81 mg capsule 81 mg PO HS semaglutide 14 mg tablet (Rybelsus) 14 mg PO QAM vit C 250 mg-vit E 90 mg-zinc 40 mg-copper 1 sp-rzzmxy-ddgjob capsule (PreserVision AREDS-2) 1 tab PO BID allopurinol 100 mg tablet 200 mg (2 x 100 mg) PO QAM clindamycin HCl 300 mg capsule 600 mg PO UD PRN Continue as directed clindamycin HCl 300 mg capsule 600 mg PO UD PRN(if needed) ASK your prescriber and surgeon anastrozole 1 mg tablet 1 mg PO QPM aspirin 81 mg capsule 81 mg PO HS STOP taking 2 weeks before surgery (or as soon as possible if surgery is within 2 weeks) biotin 5 mg capsule 5 mg PO QPM vit C 250 mg-vit E 90 mg-zinc 40 mg-copper 1 ha-aynhrm-qantzj capsule (PreserVision AREDS-2) 1 tab PO BID turmeric root extract 500 mg capsule 500 mg PO HS DO NOT take the morning of surgery losartan 50 mg tablet 25 mg (1/2 x 50 mg) PO QAM potassium chloride 10 mEq capsule,extended release 10 meq PO QAM furosemide 40 mg tablet 40 mg PO QAM metformin 500 mg tablet 1,000 mg (2 x 500 mg) PO BID semaglutide 14 mg tablet (Rybelsus) 14 mg PO QAM Take morning of surgery With a small sip of water, OTHERWISE NOTHING TO EAT OR DRINK AFTER MIDNIGHT: albuterol sulfate 90 mcg/actuation aerosol inhaler 2 puff inhalation Q4H PRN(use if needed; please bring with you to hospital day of surgery if possible) levothyroxine 50 mcg tablet 50 mcg PO QAM fluticasone 250 mcg-salmeterol 50 mcg/dose blistr powdr for inhalation (Wixela Inhub) 1 inh inhalation BID allopurinol 100 mg tablet 200 mg (2 x 100 mg) PO QAM Take evening before surgery mecobalamin (vitamin B12) 1,000 mcg chewable tablet 1,000 mcg PO QPM calcium carbonate (Calcium 600) 1,200 mg PO QPM albuterol sulfate 90 mcg/actuation aerosol inhaler 2 puff inhalation Q4H PRN(if needed) Lactobacillus acidophilus-Bifidobac.animalis 31 billion cell capsule 1 cap PO QPM multivitamin (Multiple Vitamins tablet) 1 tab PO QPM pravastatin 20 mg tablet 20 mg PO HS metformin 500 mg tablet 1,000 mg (2 x 500 mg) PO BID fluticasone 250 mcg-salmeterol 50 mcg/dose blistr powdr for inhalation (Wixela Inhub) 1 inh inhalation BID Other Notes If you have any questions please call us at [phone] or [phone] or [phone] or [phone]
--- NOTE | 2023-10-25 11:37 | Anesthesiology Consultation ---
Date of Service October 25, 2023 Assessment & Plan (1) Encounter for pre-operative examination: - Check BSG AM DOS - Infectious disease screening: Per assessment on 10/25/23: No known recent infectious disease contacts or current infectious disease symptoms. - Outpatient joint assessment: Pt currently scheduled for inpatient pathway. If surgeon requests review for outpatient joint pathway, patient is not recommended candidate for outpatient joint program from anesthesia standpoint based on available information. - Cardiology visit (02/06/23): "SVT/atrial flutter: Occurred during [facility]. Dobutamine may have induced the arrhythmia. No a fib/flutter recorded with event monitor. Anticoagulation therapy is not indicated currently for brief episode while on a proarrhythmic medication such as dobutamine.. Atrial tachycardia: One brief episode recorded with event monitor. No specific treatment indicated.. Preoperative cardiovascular evaluation: No angina. Chronic and stable dyspnea with exertion. Negative dobutamine stress echo in April 2022. Appears euvolemic on exam. Given this info, patient is at an acceptable risk to proceed with upcoming surgery without any additional cardiovascular testing or intervention.. Hypertension: Blood pressure is well controlled. No changes made at this time.. Dyslipidemia: Continue statin therapy.. Follow-up in Cardiology as needed." - S/P Right TKA (03/01/23): SAB at L4-5, 1 attempt + regional at [facility] - RUE limb restriction - Patient acceptable risk for surgery pending surgeon-ordered PCP preop evaluation ([facility], appt 11/05). History Surgery Operation Date: 11/22/23 12:35 Proposed Procedures p Left Total Knee Arthroplasty - Phil Freeman MD Height/Weight Height: 5 ft 3 in Weight: 123.2 kg Allergies Allergy/AdvReac Type Severity Reaction Status Date / Time amoxicillin Allergy Severe Anaphylaxis Verified 10/20/23 08:55 eucalyptus Allergy Severe Rash Verified 10/20/23 08:55 shrimp Allergy Severe Mouth Verified 10/20/23 13:23 blisters Sulfa (Sulfonamide Allergy Mild Rash Verified 10/20/23 08:55 Antibiotics) sodium pentothal Allergy Intermediate Swelling Uncoded 10/20/23 08:55 of Lip/Tongue/Throat Medications Home Medications Medication Instructions Recorded Confirmed Last Taken lancets (OneTouch UltraSoft #100 ea 10/24/19 09/20/23 Unknown Lancets) mecobalamin (vitamin B12) 1,000 1,000 mcg PO QPM 10/24/19 10/20/23 02/28/23 23:00 mcg chewable tablet calcium carbonate (Calcium 600) 1,200 mg PO QPM 05/12/20 10/20/23 02/28/23 23:00 BIPAP 16/13 #1 ea 08/18/20 09/20/23 Unknown blood sugar diagnostic (FreeStyle #100 ea 10/16/20 09/20/23 Unknown Lite Strips) blood-glucose meter (FreeStyle #1 ea 10/16/20 09/20/23 Unknown [place] Lite kit) albuterol sulfate 90 mcg/actuation 2 puff inhalation Q4H PRN 08/04/21 10/20/23 02/28/23 23:00 aerosol inhaler shortness of breath or wheezing #18 grams Lactobacillus 1 cap PO QPM 01/20/23 10/20/23 02/28/23 23:00 acidophilus-Bifidobac.animalis 31 billion cell capsule anastrozole 1 mg tablet 1 mg PO QPM 01/20/23 10/20/23 02/22/23 biotin 5 mg capsule 5 mg PO QPM 01/20/23 10/20/23 02/01/23 losartan 50 mg tablet 25 mg (1/2 x 50 mg) PO QAM #45 tabs 02/07/23 10/20/23 09/20/23 08:30 multivitamin (Multiple Vitamins 1 tab PO QPM 03/13/23 10/20/23 Unknown tablet) potassium chloride 10 mEq 10 meq PO QAM #90 caps 03/20/23 10/20/23 Unknown capsule,extended release pravastatin 20 mg tablet 20 mg PO HS #90 tabs 03/20/23 10/20/23 Unknown turmeric root extract 500 mg 500 mg PO HS 05/10/23 10/20/23 Unknown capsule furosemide 40 mg tablet 40 mg PO QAM #90 tabs 06/09/23 10/20/23 Unknown metformin 500 mg tablet 1,000 mg (2 x 500 mg) PO BID #360 08/04/23 10/20/23 08/29/23 23:59 tabs fluticasone 250 mcg-salmeterol 50 1 inh inhalation BID #3 Inhalers 08/21/23 10/20/23 Unknown mcg/dose blistr powdr for inhalation (Wixela Inhub) aspirin 81 mg capsule 81 mg PO HS 08/22/23 10/20/23 Unknown semaglutide 14 mg tablet (Rybelsus) 14 mg PO QAM 08/22/23 10/20/23 08/29/23 vit C 250 mg-vit E 90 mg-zinc 40 1 tab PO BID 08/22/23 10/20/23 Unknown mg-copper 1 [id number]-[id number] capsule (PreserVision AREDS-2) allopurinol 100 mg tablet 200 mg (2 x 100 mg) PO QAM #180 09/04/23 10/20/23 Unknown tabs clindamycin HCl 300 mg capsule 600 mg PO UD PRN prior to dental 10/20/23 10/20/23 Unknown procedures levothyroxine 50 mcg tablet 50 mcg PO QAM #90 tabs 10/26/23 Unknown Past Medical History Medical History Asthma Basal cell carcinoma of skin BPPV (benign paroxysmal positional vertigo) Per records Diabetes mellitus, type 2 Diabetic peripheral neuropathy Feet History of atrial flutter [facility] cardio 01/2023: "SVT/atrial flutter: Occurred during peak dobutamine infusion according to [facility] records. Dobutamine may have induced the arrhythmia. No a fib/flutter recorded with event monitor. Anticoagulation therapy is not indicated currently for brief episode while on a proarrhythmic medication such as dobutamine." History of atrial tachycardia [facility] visit 01/2023: "Atrial tachycardia: One brief episode recorded with johnathan nt monitor. No specific treatment indicated" History of breast cancer 2018, Right breast, s/p surgery + radiation RUE limb restriction History of COVID-19 x2, most recent 2021 > symptoms resolved History of gout No flare x years Hyperlipidemia Hypertension Hypothyroidism Limb alert care status RUE Macular degeneration Multiple thyroid nodules Osteoarthritis Sleep apnea BIPAP (Compliant) SVT (supraventricular tachycardia) [facility] visit 01/2023: "SVT/atrial flutter: Occurred during peak dobutamine infusion according to [facility] records. Dobutamine may have induced the arrhythmia. No a fib/flutter recorded with event monitor. Anticoagulation therapy is not indicated currently for brief episode while on a proarrhythmic medication such as dobutamine." Urinary incontinence Exercise / Class Metabolic Activity III < 4 Walking/Shop/Light housework Past Family History Family History Mother Sleep apnea Depression Hyperlipidemia Kidney disease COPD (chronic obstructive pulmonary disease) Hypertension Father Lung cancer Other No family history of adverse response to anesthesia Past Surgical History Surgical History H/O colonoscopy History of anesthesia reaction With initial breast biopsy 35 years ago, patient reports reaction to sodium pentothal allergic reaction/throat closing requiring intubation History of breast biopsy Several History of left cataract extraction History of lumpectomy of left breast benign History of lumpectomy of right breast x 2 (benign x 1, malignant x 1) History of oral surgery History of right cataract surgery (08/30/23) History of total right knee replacement (TKR) Right TKA (03/01/23): SAB at L4-5, 1 attempt + regional at [facility] History of wisdom tooth extraction Past Anesthesia History No Family Hx of Anesthesia Complications and Other (With initial breast biopsy 35 years ago, patient reports reaction to sodium pentothal allergic reaction/throat closing requiring intubation) History of PONV No Hx of PONV and No Hx of Motion Sickness Social History Smoking Status: Never smoker Do You Dip or Chew Tobacco: No Hx Alcohol Use: Yes alcohol intake frequency: holidays/special occasions only Hx Substance Use: No substance use type: does not use Review of Systems Patient denies chest pain, shortness of breath, fever, chills, cough, wheezing, palpitations. Physical Exam Vital Signs BP 132/81 P 75 TEMP 98.2 SP02 97%RA RESP 16 Physical Full cervical extension range of motion. Full TMJ range of motion. TMD 2.5 finger breaths (small chin) Mallampati Score III Dentition: intact, left upper side implant Lungs: clear throughout to auscultation Cardiac: regular rate and rhythm, no murmurs noted Spine: normal Carotid arteries: negative bruit Extremities: no LE edema Thick neck Lab Results Anesthesia Preop Results Results Anesthesia Widget: WBC 6.80 K/ul (4.8-10.8) 10/25/23 Hgb 12.3 g/dl (12.0-16.0) 10/25/23 Hct 38.1 % (37.0-47.0) 10/25/23 Plt 225 K/uL (130-400) 10/25/23 Na 141 mmol/L (136-145) 10/25/23 K 4.4 mmol/L (3.5-5.1) 10/25/23 Cl 102 mmol/L (98-107) 10/25/23 CO2 28 mmol/L (21-32) 10/25/23 BUN 17 mg/dl (6-23) 10/25/23 Creat 0.83 mg/dl (0.6-1.2) 10/25/23 Glucose Level 98 mg/dl (70-99(Fasting)) 10/25/23 POC Glucose 99 mg/dl (70-99) 09/20/23 PT 10.6 Seconds (9.0-12.0) 10/25/23 PTT 30 Seconds (21-31) 10/25/23 INR 1.0 (0.9-1.1) 10/25/23 HA1c 6.6 % (4.5-5.6) H 10/25/23 Urine Color Dark Yellow 10/25/23 Urine Appearance Clear (Clear) 10/25/23 Urine pH 7.5 (4.5-7.5) 10/25/23 Urine Specific [place] 1.031 (1.000-1.030) H 10/25/23 Urine Protein Trace (Negative) H 10/25/23 Urine Glucose (UA) Negative (Negative) 10/25/23 Urine Ketones Trace (Negative) H 10/25/23 Urine Blood Negative (Negative) 10/25/23 Urine Nitrite Negative (Negative) 10/25/23 Urine Bilirubin Negative (Negative) 10/25/23 Urine Urobilinogen Negative (Negative) 10/25/23 Urine Leukocyte Esterase Trace (Negative) H 10/25/23 Urine WBC (Auto) 0-5 /hpf (0-5) 10/25/23 Urine RBC (Auto) 0-2 /hpf (0-2) 10/25/23 Urine Hyaline Casts (Auto) 0-2 /lpf (0-2) 10/25/23 Urine Epithelial Cells (Auto) 0-2 /hpf (0-2) 10/25/23 Urine Bacteria (Auto) None Seen (None Seen) 10/25/23 Blood Type A Positive 10/25/23 Antibody Screen NEGATIVE 10/25/23 Testing Electrocardiogram Date: 10/25/23 NSR at 69bpm. Low voltage QRS. Chest X-Ray Date: 01/27/23 FINDINGS: No pneumothorax. No pleural effusions. Small left basilar linear density favors subsegmental atelectasis or scarring. Otherwise, the lungs are clear. The heart is top normal in size. There are old, healed right-sided rib fractures. IMPRESSION: No acute process. Stress Test Date: 05/05/22 Dobutamine MPHR 85% Normal without resting LV wall motion abnormalities or inducible ischemia SVT mechanism appears to be atrial flutter with rates in the 180s at peak infusion, broke in 2 minutes EF 60-64% Grade I diastolic dysfunction Non-dilated cardiac chambers No significant valvular pathology Other Testing Cardiac event monitor Date: 08/03/22 Sinus rhythm, rate 77 bpm Frequent supraventricular ectopic complexes Nonsustained atrial tachycardia 6 reported symptomatic episodes including chest pain and heart racing, typically occurred during sinus rhythm with PACs
--- NOTE | 2023-11-20 16:51 | History & Physical Report ---
Date of Service November 20, 2023 Assessment & Plan (1) Osteoarthritis of left knee: Plan: Severe end-stage osteoarthritis of the left knee with tricompartmental osteoarthritis and failed conservative management. Mckeon [employer] Nephew left total knee replacement planned. Osteoarthritis type: primary Qualified Code(s): M17.12 - Unilateral primary osteoarthritis, left knee (2) Morbid obesity: (3) History of right knee joint replacement: History of Present Illness Chief Complaint: Chronic left knee pain Primary Care Provider: Tricia Lo, Chronic left knee pain in a 68-year-old female with history of right knee repl acement with satisfactory outcome today. Patient denies headaches, sweats, fevers, chills, double vision, blurred vision, cough, sore throat, dysphagia, chest pain, sob, wheezing, n/v/d/c, numbness, tingling, fatigue, urinary symptoms, mood disorders. ROS positive for hypertension high cholesterol asthma sleep apnea CPAP use shortness of breath with activity including running walking up a hill climbing stairs shoveling snow, medical treatment for diabetes and thyroid and history of anemia osteoarthritis acid reflux obesity. Allergies Allergy/AdvReac Type Severity Reaction Status Date / Time amoxicillin Allergy Severe Anaphylaxis Verified 11/06/23 13:08 eucalyptus Allergy Severe Rash Verified 11/06/23 13:08 shrimp Allergy Severe Mouth Verified 11/06/23 13:08 blisters Sulfa (Sulfonamide Allergy Mild Rash Verified 11/06/23 13:08 Antibiotics) sodium pentothal Allergy Intermediate Swelling Uncoded 11/06/23 13:08 of Lip/Tongue/Throat Home Medications Medication Instructions Recorded Confirmed Type lancets (OneTouch UltraSoft #100 ea 10/24/19 09/20/23 Rx Lancets) mecobalamin (vitamin B12) 1,000 1,000 mcg PO QPM 10/24/19 11/06/23 History mcg chewable tablet calcium carbonate (Calcium 600) 1,200 mg PO QPM 05/12/20 11/06/23 History BIPAP #1 ea 08/18/20 09/20/23 Rx blood sugar diagnostic (FreeStyle #100 ea 10/16/20 09/20/23 Rx Lite Strips) blood-glucose meter (FreeStyle #1 ea 10/16/20 09/20/23 Rx [place] Lite kit) albuterol sulfate 90 mcg/actuation 2 puff inhalation Q4H PRN 08/04/21 11/06/23 Rx aerosol inhaler shortness of breath or wheezing #18 grams Lactobacillus 1 cap PO QPM 01/20/23 11/06/23 History acidophilus-Bifidobac.animalis 31 billion cell capsule anastrozole 1 mg tablet 1 mg PO QPM 01/20/23 11/06/23 History biotin 5 mg capsule 5 mg PO QPM 01/20/23 11/06/23 History losartan 50 mg tablet 25 mg (1/2 x 50 mg) PO QAM #45 tabs 02/07/23 11/06/23 Rx multivitamin (Multiple Vitamins 1 tab PO QPM 03/13/23 11/06/23 History tablet) potassium chloride 10 mEq 10 meq PO QAM #90 caps 03/20/23 11/06/23 Rx capsule,extended release pravastatin 20 mg tablet 20 mg PO HS #90 tabs 03/20/23 11/06/23 Rx turmeric root extract 500 mg 500 mg PO HS 05/10/23 11/06/23 History capsule furosemide 40 mg tablet 40 mg PO QAM #90 tabs 06/09/23 11/06/23 Rx metformin 500 mg tablet 1,000 mg (2 x 500 mg) PO BID #360 08/04/23 11/06/23 Rx tabs aspirin 81 mg capsule 81 mg PO HS 08/22/23 11/06/23 History semaglutide 14 mg tablet (Rybelsus) 14 mg PO QAM 08/22/23 11/06/23 History vit C 250 mg-vit E 90 mg-zinc 40 1 tab PO BID 08/22/23 11/06/23 History mg-copper 1 [id number] capsule (PreserVision AREDS-2) allopurinol 100 mg tablet 200 mg (2 x 100 mg) PO QAM #180 09/04/23 11/06/23 Rx tabs clindamycin HCl 300 mg capsule 600 mg PO UD PRN prior to dental 10/20/23 11/06/23 History procedures fluticasone 250 mcg-salmeterol 50 1 inh inhalation BID #3 Inhalers 10/26/23 11/06/23 Rx mcg/dose blistr powdr for inhalation (Wixela Inhub) levothyroxine 50 mcg tablet 50 mcg PO QAM #90 tabs 10/26/23 11/06/23 Rx Past Med/Surg History Problem List (Updated 11/20/23 @ 16:50 by Phil Freeman MD) History of right knee joint replacement Osteoarthritis of left knee Acute blood loss anemia Primary osteoarthritis of right knee Encounter for pre-operative examination Atypical chest pain SVT (supraventricular tachycardia) Diabetic peripheral neuropathy feet Gout Asthma (Chronic) Basal cell carcinoma of skin (Chronic) Breast cancer (Chronic) Diabetes mellitus (Chronic) Hyperlipidemia (Chronic) Hypertension (Chronic) Hypothyroidism (Chronic) Morbid obesity (Chronic) Multiple thyroid nodules (Chronic) Osteoarthritis of knees, bilateral (Chronic) Sleep apnea (Chronic) BiPAP-compliant Medical History History of atrial tachycardia [facility] visit 01/2023: "Atrial tachycardia: One brief episode recorded with event monitor. No specific treatment indicated" History of atrial flutter [facility] cardio 01/2023: "SVT/atrial flutter: Occurred during peak dobutamine infusion according to [facility] records. Dobutamine may have induced the arrhythmia. No a fib/flutter recorded with event monitor. Anticoagulation therapy is not indicated currently for brief episode while on a proarrhythmic medication such as dobutamine." BPPV (benign paroxysmal positional vertigo) Per records Sleep apnea BIPAP (Compliant) Osteoarthritis Multiple thyroid nodules Hypothyroidism Hypertension Hyperlipidemia Diabetic peripheral neuropathy Feet Diabetes mellitus, type 2 Basal cell carcinoma of skin History of COVID-19 x2, most recent 2021 > symptoms resolved Macular degeneration Limb alert care status RUE History of gout No flare x years Urinary incontinence History of breast cancer 2018, Right breast, s/p surgery + radiation RUE limb restriction SVT (supraventricular tachycardia) [facility] visit 01/2023: "SVT/atrial flutter: Occurred during peak dobutamine infusion according to [facility] records. Dobutamine may have induced the arrhythmia. No a fib/flutter recorded with event monitor. Anticoagulation therapy is not indicated currently for brief episode while on a proarrhythmic medication such as dobutamine." Asthma Surgical History History of anesthesia reaction With initial breast biopsy 35 years ago, patient reports reaction to sodium pentothal allergic reaction/throat closing requiring intubation History of left cataract extraction History of right cataract surgery (08/30/23) History of total right knee replacement (TKR) Right TKA (03/01/23): SAB at L4-5, 1 attempt + regional at [facility] History of oral surgery History of wisdom tooth extraction History of lumpectomy of right breast x 2 (benign x 1, malignant x 1) History of lumpectomy of left breast benign History of breast biopsy Several H/O colonoscopy Family History Mother Sleep apnea Depression Hyperlipidemia Kidney disease COPD (chronic obstructive pulmonary disease) Hypertension Father Lung cancer Other No family history of adverse response to anesthesia Social History Smoking Status: Never smoker Second Hand Exposure: No; Do You Dip or Chew Tobacco: No; Hx Alcohol Use: Yes Hx Substance Use: No Preferred Language: Italian Communication Ability: Effective Captain Of Guards Required: No Beliefs That Will Affect Care: Lutheran Lutheran Beliefs: Yazidism marital status: Single Current Living Situation: Alone Feels Safe at Home: Yes Assistive Devices: BiPap and Glasses Review of Systems Constitutional-no fever or chills ENT-no blurred vision, no double vision, no epistaxis, no sore throat Respiratory-no cough, no wheezing, no shortness of breath Cardiac-no palpitations, no chest pain, no syncope GI-no nausea, vomiting, diarrhea, melena, hematochezia -no urinary retention, no urinary incontinence, no dysuria, no hematuria Musculoskeletal-postoperative right knee discomfort as expected. No muscle tenderness Skin-no bruising, no rashes, no pruritus Neuro-no isolated weakness, no paresthesia, no weakness Psych-no depression, no anxiety Physical Exam Constitutional: Morbid obesity Respiratory: normal respiratory effort; no respiratory distress Cardiovascular: Rate/Rhythm: regular rate and regular rhythm Musculoskeletal: Left knee with a varus knee mild effusion moderate swelling patellofemoral crepitation medial joint line tenderness weightbearing pain medial compartment 0 to 120 degrees range of motion. Right knee mild effusion surgical scars mild swelling 0 to 120 degrees range of motion, consistent with right total knee r eplacement stable implants. Distal circulation sensorimotor exam intact. Skin: no rashes, warm and dry Neurologic: normal touch/pain/proprioception Psychiatric: A+Ox3, euthymic affect Results & Data Diagnostic Findings 4 view weightbearing x-rays left knee demonstrate severe tricompartmental osteoarthritis [id number] medial compartment with subluxation of the femur medially on the tibia with large osteophytes. There are some lateral patellar tilt. There is large posterior femoral condylar osteophytes and large anterior osteophytes on the lateral view. Right knee has satisfactory aligned Mckeon [employer] Nephew journey knee replacement
[~2023-11-22 09:07] MED LIST changes: -ACETAMINOPHEN 500 MG TAB PO SCH; -DEXAMETHASONE SOD INJ 4 MG/ML VIAL ONE; -FAMOTIDINE 20 MG TAB PO SCH; -GABAPENTIN 300 MG CAP PO SCH; -GLYCOPYRROLATE 0.2 MG/ML VIAL ONE; -LR 500ML BOLUS, THEN 15ML/HR IV SCH; -LR 60ML/HR IV SCH; -METOCLOPRAMIDE HCL 10 MG TABLET PO SCH; -MIDAZOLAM HCL 1 MG/ML 2ML VIAL ONE; -ONDANSETRON INJ 2 MG/ML 2 ML VIAL ONE; -PROPOFOL IV EMULSION 10 MG/ML 20 ML VIAL IV ONE; -ROPIV 0.5% 246mg, Ketorolac 30mg, EPINEPHrine 0.5mg in NSS INFIL SCH; +ROPIVACAINE 0.5% HCL/PF 246 MG, Ketorolac (*for OR use only*) 30 MG in SODIUM CHLORIDE ... INFIL SCH; -TRANEXAMIC ACID 1,000 MG **IV Intra-op IV SCH; -TRANEXAMIC ACID 1,000 MG **IV Pre-op IV SCH; -VANCOMYCIN HCL 1,750 MG in SODIUM CHLORIDE 0.9% 500 ML IV SCH; -fentaNYL citrate PF 100 MCG/2 ML VIAL ONE
[2023-11-22] MEDS: VANCOMYCIN HCL 1,750 MG in SODIUM CHLORIDE 0.9% 500 ML IV SCH ×2 (10:00→23:17)
[2023-11-22] MEDS: LR 500ML BOLUS, THEN 15ML/HR IV SCH (10:00)
[2023-11-22] MEDS: LR 60ML/HR IV SCH (10:00)
[2023-11-22] MEDS: GABAPENTIN 300 MG CAP PO SCH (10:10)
[2023-11-22] MEDS: ACETAMINOPHEN 500 MG TAB PO SCH ×2 (10:10→21:55)
[2023-11-22] MEDS: METOCLOPRAMIDE HCL 10 MG TABLET PO SCH (10:10)
[2023-11-22] MEDS: FAMOTIDINE 20 MG TAB PO SCH (10:10)
[2023-11-22] MEDS ORDERED: ATROPINE SULFATE 0.1 MG/ML 10ML SYR IV PRN (11:00)
[2023-11-22] MEDS ORDERED: ePHEDrine sulfate 50 MG/ML AMP IV PRN (11:00)
[2023-11-22] MEDS ORDERED: ONDANSETRON INJ 2 MG/ML 2 ML VIAL IV PRN (11:00)
[2023-11-22] MEDS ORDERED: MIDAZOLAM HCL 1 MG/ML 2ML VIAL ONE ×2 (11:03→12:34)
[2023-11-22] MEDS ORDERED: PROPOFOL IV EMULSION 10 MG/ML 20 ML VIAL IV ONE ×6 (11:03→15:00)
--- NOTE | 2023-11-22 12:14 | History & Physical Bridge Note ---
Date of Service November 22, 2023 History & Physical Bridge Note I have examined the patient, reviewed the History & Physical and in the interval since the performance of the History & Physical I have noted the following changes of clinical significance: no changes noted
[2023-11-22] MEDS: TRANEXAMIC ACID 1,000 MG **IV Pre-op IV SCH (12:25)
[2023-11-22] MEDS ORDERED: KETAMINE HCL 10MG/ML SYR ONE (12:56)
[2023-11-22] MEDS: ORTHO JOINT ANESTHETIC ONE (13:23)
[2023-11-22] MEDS: ROPIVACAINE 0.5% HCL/PF 246 MG, Ketorolac (*for OR use only*) 30 MG in SODIUM CHLORIDE ... INFIL SCH (13:23)
[2023-11-22] MEDS: TRANEXAMIC ACID 1,000 MG **IV Intra-op IV SCH (14:44)
--- NOTE | 2023-11-22 15:43 | Operative Report ---
Post Operative Report Pre & Post Diagnosis Operation Date: 11/22/23 12:20 Pre-Op Diagnosis: Left Knee Osteoarthritis ,morbid obesity BMI 48.1 Post-Op Diagnosis: Left Knee Osteoarthritis ,morbid obesity BMI 48.1 I identified the patient and participated in the time-out.: Yes Procedure Operation Date: 11/22/23 12:20 Actual Procedures p Left Total Knee Arthroplasty, Cemented, lateral release, shelton and Acticoat superficial wound VAC application, increased difficulty more obesity BMI 48.1- Phil Freeman MD Surgeon Phil Freeman MD Machine Maintenance Servicer Brandan WALTON Estimated Blood Loss 50 Findings Consistent with Post-Op Diagnosis Specimens bone cuts Drains 2 Hemovac Anesthesia Type MAC Spinal Regional Complications none Disposition Disposition: Recovery Room Indications 68-year-old female with a very severe osteoarthritis of her left knee failed conservative management. X-rays demonstrate massive osteophytes tricompartmental osteoarthritis [id number] medial compartment with some bone loss. Patient's had a successful right knee replacement. Description of Procedure The patient was taken to the operating room and anesthetized under spinal MAC regional block. Patient was placed supine on the the operating table. A pneumatic tourniquet was placed about the left obese upper thigh. The knee exam demonstrated obese leg with varus knee with limited range of motion 0 to 100 degrees. The involved leg was elevated exsanguinated with Esmarch bandage and the pneumatic tourniquet was raised to 350 millimeters mercury. A longitudinal incision was made across the anterior knee. Skin flaps and relatively deep subcutaneous flaps were elevated. An incision was made into the medial retinaculum and extended up into the mid third of the quadriceps tendon and extended down to the tibial tubercle. Intra-articular findings demonstrated severe tricompartmental degenerative arthritis with multiple loose bodies chr onic ACL tear chronic medial meniscus tear with massive posterior and medial osteophytes. There was bone loss in the medial compartment with a varus knee. There was some increased Q angle. The knee was exposed by excising posterior cruciate ligament and menisci remnants. A portion of the infrapatellar fat pad was resected. The fat pad over the anterior femur at the upper aspect of the articular surface was resected for placement of the component in that area. A subperiosteal peel lateral release was performed around the patella. Some large osteophytes removed with a rongeur. Loose bodies when encountered were removed. The Mckeon [employer] Nephew journey 2.0 total knee arthroplasty system was utilized for the procedure. The custom femoral cutting guide was pinned in position. The distal femoral cut was made. The size 4, 5 in 1 cutting block was placed. The anterior posterior and chamfer cuts were made. Very massive medial posterior medial osteophyte was removed piecemeal and required curved osteotome angled curettes to assist in removing this. The knee was extended and a free hand cut technique was performed to the patella. The patella width was measured and the width was reproduced using a 29 mm symmetrical polyethylene patella component. The excess lateral facet was beveled off to prevent any impingement. 3 drill holes are made for the patella component pegs. The tibia was then subluxed. The custom tibial cutting block did not appear to align appropriately so I went ahead and used an external tibial cutting guide to make a perpendicular cut to the long axis of the tibia matching the tibial slope. Was pinned this guide in position and the proximal tibial cut was made with the oscillating saw. Flexion and extension gaps were balanced. No releases were required. The MCL was somewhat stretched over the large medial and posterior medial osteophyte so it was somewhat lax. The size 3 tibial trial was externally rotated in line with the tibial tubercle and pinned in position. The punch for the stem was used. The femoral trial was inserted and centered the notch cutting devices were used and the collet was placed. Tibial trials were used for the insert. The size 18 trial gave balanced ligaments through full range of motion. The thicker poly was required due to the bone loss on the medial side of the tibia requiring the tibial cut just below the level of bone loss. Patella tracking was assessed with range of motion. The patella tracked somewhat laterally with increased tilt so I had to do a lateral release to correct patellar tracking. Laterally so performed maintaining the synovium intact.. The trials were removed. The Orthomix anesthetic cocktail was injected per protocol. The cut bone surfaces and soft tissue were copiously irrigated with pulsatile lavage saline solution. The final components were cemented with Refobacin cement. The final components were Mckeon [employer] Nephew journey size 4 posterior stabilized left femoral component, size 3 left tibial component, 18 mm posterior stabilized tibial polyethylene and the 29 mm symmetrical polyethylene patella. Xperience irrigation was placed over metal tray prior to polyethyle insertion. After the cement cured, the knee was then copiously irrigated with pulsatile lavage Xperience solution. 2 drains were brought out laterally connected to Hemovac. The quadriceps tendon and medial retinaculum were repaired with #2 FiberWire sutures along the medial retinaculum and distal quad tendon and 1 at the apex of the most proximal split the quad tendon and 1 suture at the level of the tibial polyethylene. A running locking oh strata fix suture was then placed from the superior quad tendon incision all way down to the inferior medial retinacular repair at the level of the inferior pole the patella. The distal medial retinaculum adjacent to the patella tendon was repaired with 2 [id number] number Vicryl sutures. The knee was taken through full range of motion and repair was secure. Knee range of motion was 0 through 130 degrees. At this time tourniquet was let down and we obtained hemostasis with electrocautery and no major bleeders were identified. The subcutaneous tissues were then closed with 2-0 Vicryl sutures in layers. The skin was closed with surgical kelli. A shelton and Acticoat superficial wound VAC Was applied. The tourniquet was let down and the patient had good capillary refill to the extremity. There was increased level difficulty due to her morbid obesity which added 30 minutes to the procedure. The patient tolerated the procedure well. My physician trust operations assistant Brandan WALTON participated as senior office support assistant sosa and was integral part in all aspects of the procedure including prepping, draping, leg positioning, soft tissue retraction, instrument management and assisted in the closure , wound VAC application and will participate in postoperative care the patient. I attest to the content of the Intraoperative Record and any orders documented therein. Any exceptions are noted below.
[2023-11-22] MEDS: fentaNYL citrate PF 100 MCG/2 ML VIAL IV PRN (15:45)
--- NOTE | 2023-11-22 16:06 | XRay Report ---
TWO VIEWS LEFT KNEE CLINICAL HISTORY: Postoperative examination. FINDINGS: AP and crosstable lateral portable views of the left knee are obtained. A left knee arthrop lasty is in near anatomic alignment. There has been undersurface remodeling of the patella. No acute fracture is seen. There are expected postoperative changes around the knee including skin clips, a pink rgical drain, soft tissue edema, and subcutaneous gas. IMPRESSION: Expected postoperative changes status post left knee arthroplasty. No acute fracture is s een. ACT 112: Negative or not required by law. Electronically signed by: Martin Oropeza M.D. 11/22/2023 4:05 PM
--- NOTE | 2023-11-22 16:07 | Anesthesiology Progress Note ---
Date of Service November 22, 2023 Anesthesia Post Procedure Vital Signs Vital Signs: Temp Pulse Pulse Resp BP Pulse Ox O2 Del Method 11/22/23 16:00 36.5 C 70 14 130/71 94 Nasal Cannula 11/22/23 15:50 74 16 126/73 94 Nasal Cannula 11/22/23 15:40 72 18 128/67 96 Nasal Cannula 11/22/23 15:34 36.2 C L 75 18 124/63 97 Oxymask 11/22/23 09:44 36.7 C 75 18 163/75 H 95 Room Air O2 Flow Rate 11/22/23 16:00 2 11/22/23 15:50 2 11/22/23 15:40 2 11/22/23 15:34 4 11/22/23 09:44 Pain Intensity Left Knee: Pain Intensity: 2 Transfer of Care Handoff Completed per policy Notes Mental Status: alert / awake / arousable Patient Amnestic to Procedure: Yes Nausea / Vomiting: adequately controlled Pain: adequately controlled Airway Patency, RR, SpO2: stable & adequate BP & HR: stable & adequate Hydration State: stable & adequate Neuraxial Anesthesia: was administered and sensory block is resolving Anesthetic Complications: no major complications apparent and Pt Satisfied with anesthetic care
[2023-11-22] MEDS ORDERED: NALOXONE HCL 0.4 MG/1 ML VIAL/CARP IV PRN (17:18)
[2023-11-22] MEDS ORDERED: bisacodyL 10 MG SUPP PR PRN (17:18)
[2023-11-22] MEDS ORDERED: ALUMINUM/MAGNESIUM SUSP 30 ML UDC PO PRN (17:18)
[2023-11-22] MEDS ORDERED: METOCLOPRAMIDE HCL INJ 5 MG/ML 2 ML VIAL IV PRN (17:18)
[2023-11-22] MEDS ORDERED: ALBUTEROL HFA 8 GM INHALER INH PRN (17:18)
[2023-11-22] MEDS ORDERED: VANCOMYCIN CONSULT ACTIVE PRN (17:18)
[2023-11-22] MEDS ORDERED: diphenhydrAMINE Capsule 25 MG CAP PO PRN (17:18)
[2023-11-22] MEDS ORDERED: PHARMACY GLYCEMIC MGMT CONSULT PRN (17:18)
[2023-11-22] MEDS ORDERED: MAGNESIUM HYDROXIDE SUSP 30 ML UDC PO PRN (17:18)
[2023-11-22] MEDS ORDERED: DEXTROSE 50% 50 ML SYRINGE IV PRN (18:00)
[2023-11-22] MEDS ORDERED: GLUCOSE 10 TAB/TUBE PO PRN (18:00)
[2023-11-22] MEDS ORDERED: GLUCOSE 40% GEL 15 GM TUBE PO PRN (18:00)
[2023-11-22] MEDS ORDERED: CARBOHYDRATES FOR HYPOGLYCEMIA PO PRN (18:00)
[2023-11-22] MEDS ORDERED: GLUCAGON FOR INJ 1 MG VIAL SQ PRN (18:00)
[2023-11-22] MEDS: SODIUM CHLORIDE 0.9% 1,000 ML IV SCH (18:07)
[2023-11-22] MEDS: FLUTICASONE/VILANTEROL 200/25MCG 14 PUFFS/INHALER INH SCH (18:14)
[2023-11-22] MEDS: INSULIN ASPART PER UNIT CHARGE SC SCH (18:28)
[2023-11-22] MEDS: oxyCODONE HCL IR 5 MG TAB (IMMEDIATE RELEASE) PO PRN (19:10)
[2023-11-22] MEDS: PRAVASTATIN SOD 20 MG TAB PO SCH (20:28)
[2023-11-22] MEDS: ASPIRIN 81 MG ECTAB PO SCH (20:28)
[2023-11-22] MEDS: CALCIUM CARBONATE 1250MG TAB PO SCH (20:28)
[2023-11-22] MEDS: CYANOCOBALAMIN (B-12) 500 MCG TABLET PO SCH (20:29)
[2023-11-22] MEDS: ADVANCED PROBIOTIC 625 MG CAPSULE PO SCH (20:29)
[2023-11-22] MEDS: CEROVITE ADV FORMULA TAB PO SCH (20:29)
[2023-11-22] MEDS: ANASTROZOLE 1 MG TAB PO SCH (20:30)
[2023-11-22] MEDS: DOCUSATE SODIUM 100 MG CAP PO SCH (20:40)
[2023-11-22] MEDS: SENNA 8.6 MG TAB PO SCH (20:40)
[2023-11-22] MEDS: KETOROLAC TROMETHAMINE 15 MG/ML VIAL IV PRN (20:42)
[2023-11-22] MEDS ORDERED: INSULIN ASPART PER UNIT CHARGE SC SCH (21:00)
[2023-11-22] MEDS ORDERED: NON-FORMULARY MEDICATION (Biotin 5 mg capsule) PO SCH (21:00)
[2023-11-22] MEDS ORDERED: metFORMIN HCL 500 MG TAB PO SCH (21:00)
[2023-11-22] MEDS ORDERED: NON-FORMULARY MEDICATION (Multivitamin [Multiple Vitamins] tablet) PO SCH (21:00)
[2023-11-22] MEDS: TRANEXAMIC ACID / 0.7% NACL 1,000 MG/100 ML BAG IV SCH (21:53)
[2023-11-23] MEDS: HYDROmorphone INJ 0.5 MG/0.5 ML SYR IV PRN (01:53)
[2023-11-23] MEDS: LEVOTHYROXINE SODIUM 50 MCG TABLET PO SCH (05:04)
[2023-11-23 07:03] LABS: Calcium 8.4 mg/dl (8.6-10.3); Potassium 4.1 mmol/L (3.5-5.1)
[2023-11-23 07:09] LABS: BUN Creatinine Ratio 21.4 (10-20); Creatinine Clr Calc Pharmacy 83.9 ml/min
[2023-11-23 07:17] LABS: Hematocrit (blood only) 31.3 % (37.0-47.0); Hemoglobin 9.9 g/dl (12.0-16.0); Mean Corpuscular Hemoglobin 28.3 pg (25.0-34.0); Mean Corpuscular Hgb Conc 31.6 g/dL (32.0-36.0); Mean Corpuscular Volume 89.4 fL (80.0-100.0); Mean Platelet Volume 10.3 fL (9.4-12.4); Platelet Count 110 K/uL (130-400); RDW Coefficient of Variation 15.3 % (11.5-14.5); White Blood Count 6.35 K/ul (4.8-10.8)
--- NOTE | 2023-11-23 07:45 | Orthopedic Progress Note ---
Date of Service November 23, 2023 Assessment & Plan (1) Osteoarthritis of left knee: Plan: Severe end-stage osteoarthritis of the left knee with tricompartmental osteoarthritis and failed conservative management. Mckeon & Nephew left total knee replacement completed postoperative day 1. Continue hospital stay and physical therapy and continue drain for another day and plan removing drain tomorrow. Patient requires rehabilitation stay at rehab hospital postop as she has nobody at home and did this after her last knee replacement with success. (2) Morbid obesity: (3) History of right knee joint replacement: Admission and Anticipated Discharge Date Admission Date: November 22, 2023 Subjective Patient having more pain than previous knee replacement but had relief from Dilaudid last evening. Review of Systems Review of Systems: No chest pain shortness of breath or medical issues. Physical Exam Musculoskeletal: Left lower extremity distal circulation sensorimotor exam intact. Patient unable to do independent straight leg raise but can do a quad set. Dressing dry and intact. Still getting drainage into Hemovac. Results & Data Vital Signs (Past 12 Hours) Vital Signs Temp Pulse Resp BP Pulse Ox O2 Del Method 11/23/23 01:53 36.7 C 71 18 100/63 94 Room Air 11/22/23 23:40 Room Air, CPAP 11/22/23 23:24 36.8 C 74 18 114/73 94 Room Air 11/22/23 20:12 36.9 C 74 18 120/71 93 Room Air Laboratory Results Hemoglobin 9.9 some anemia due to postoperative blood loss. BUN/creatinine normal. Diagnostic Findings Well aligned left total knee replacement on x-rays. (1) Osteoarthritis of left knee Osteoarthritis type: primary Qualified Code(s): M17.12 - Unilateral primary osteoarthritis, left knee
[2023-11-23] MEDS: MULTIVITAMIN TAB PO SCH (07:58)
[2023-11-23] MEDS: allopurinoL 100 MG TAB PO SCH (07:58)
[2023-11-23] MEDS: POTASSIUM CHLORIDE 10 MEQ TABCR PO SCH (08:10)
[2023-11-23] MEDS ORDERED: DOCUSATE SODIUM 100 MG CAP PO SCH (09:00)
[2023-11-23] MEDS ORDERED: LOSARTAN POTASSIUM 25 MG TAB PO SCH (09:00)
[2023-11-23] MEDS ORDERED: FUROSEMIDE 40 MG TAB PO SCH (09:00)
[2023-11-23] MEDS: ONDANSETRON INJ 2 MG/ML 2 ML VIAL IV PRN (12:24)
--- NOTE | 2023-11-23 15:39 | Pharmacy Report ---
Pharmacy Glycemic Short Note 2 - Date of Service November 23, 2023 - Glycemic Short BSG Results (Last 24 hours): 11/22/23 11/22/23 11/22/23 15:36 17:40 20:14 Glucose POC Glucose 109 H 105 H 106 H 11/23/23 11/23/23 11/23/23 06:07 07:45 11:39 Glucose 135 H POC Glucose 159 H 198 H OUTPATIENT ANTIDIABETIC REGIMEN: * Metformin 1000mg bid * Rybelsus 14mg po daily HbA1c: 6.6% on 10/25/23 ASSESSMENT: * 68 year old female admitted 11/21 for a total knee replacement. Pharmacy has been consulted to assist with inpatient glycemic management postop. Patient is a type 2 diabetic as an outpatient. * Patient's BSG was in range postop yesterday so no basal insulin was given and a conservative bolus insulin regimen was started. * Patient's BSG mark slightly today to 198mg/dl with lunch, however patient was refusing insulin coverage. Will leave the bolus scale on through the evening in case coverage is needed and patient agrees to a dose. PLAN FOR INPATIENT GLYCEMIC CONTROL: * Hold outpatient oral diabetes medications * No basal insulin * Bolus insulin * NovoLog per scale ACHS or Q6hrs while NPO * Goal Range: Low 110 mg/dL - High 140 mg/dL * Correction Factor: 35 mg/dL/unit * Nutritional / Prandial insulin per carb ratio of 1 unit per 10 grams CHO consumed
--- NOTE | 2023-11-23 18:45 | Hospitalist Consultation ---
Date of Consultation November 23, 2023 Assessment & Plan (1) Osteoarthritis of left knee: per primary team DVT prophylaxis per primary team (2) Acute blood loss anemia: will be monitoring hemoglobin staus post surgery (3) SVT (supraventricular tachycardia): appears controlled (4) Diabetes mellitus: insulin aspart ordered. (5) Hypertension: on hold due to acute blood loss anemia. BP also appears to be controlled (6) Hyperlipidemia: resume pravastatin (7) Hypothyroidism: resume levothyroxine History of Present Illness Reason for Consultation: medical management. Attending Physician: Phil Freeman MD History of Present Illness This is a pleasant 68 yo female with PMH of a. fib, Obesity, breast cancer, asthma, SVT, admitted for left knee osteoarthritis. Patient had a total left knee arthropalasty. Orthopedics consulted medicine for medical management. Patient currently has no symptoms of SOB, nausea, palpitations. ROS noted below. Allergies Allergy/AdvReac Type Severity Reaction Status Date / Time amoxicillin Allergy Severe Anaphylaxis Verified 11/22/23 09:52 eucalyptus Allergy Severe Rash Verified 11/22/23 09:52 shrimp Allergy Severe Mouth Verified 11/22/23 09:52 blisters Sulfa (Sulfonamide Allergy Mild Rash Verified 11/22/23 09:52 Antibiotics) sodium pentothal Allergy Intermediate Swelling Uncoded 11/22/23 09:52 of Lip/Tongue/Throat Home Medications Medication Instructions Recorded Confirmed Type lancets (OneTouch UltraSoft #100 ea 10/24/19 09/20/23 Rx Lancets) mecobalamin (vitamin B12) 1,000 1,000 mcg PO QPM 10/24/19 11/22/23 History mcg chewable tablet calcium carbonate (Calcium 600) 1,200 mg PO QPM 05/12/20 11/22/23 History BIPAP 16/13 #1 ea 08/18/20 09/20/23 Rx blood sugar diagnostic (FreeStyle #100 ea 10/16/20 09/20/23 Rx Lite Strips) blood-glucose meter (FreeStyle #1 ea 10/16/20 09/20/23 Rx [place] Lite kit) albuterol sulfate 90 mcg/actuation 2 puff inhalation Q4H PRN 08/04/21 11/22/23 Rx aerosol inhaler shortness of breath or wheezing #18 grams Lactobacillus 1 cap PO QPM 01/20/23 11/22/23 History acidophilus-Bifidobac.animalis 31 billion cell capsule anastrozole 1 mg tablet (Arimidex) 1 mg PO QPM 01/20/23 11/22/23 History biotin 5 mg capsule 5 mg PO QPM 01/20/23 11/22/23 History losartan 50 mg tablet 25 mg (1/2 x 50 mg) PO QAM #45 tabs 02/07/23 11/22/23 Rx multivitamin (Multiple Vitamins 1 tab PO QPM 03/13/23 11/22/23 History tablet) potassium chloride 10 mEq 10 meq PO QAM #90 caps 03/20/23 11/22/23 Rx capsule,extended release pravastatin 20 mg tablet 20 mg PO HS #90 tabs 03/20/23 11/22/23 Rx turmeric root extract 500 mg 500 mg PO HS 05/10/23 11/22/23 History capsule furosemide 40 mg tablet 40 mg PO QAM #90 tabs 06/09/23 11/22/23 Rx metformin 500 mg tablet 1,000 mg (2 x 500 mg) PO BID #360 08/04/23 11/22/23 Rx tabs aspirin 81 mg capsule 81 mg PO HS 08/22/23 11/22/23 History semaglutide 14 mg tablet (Rybelsus) 14 mg PO QAM 08/22/23 11/22/23 History vit C 250 mg-vit E 90 mg-zinc 40 1 tab PO BID 08/22/23 11/22/23 History mg-copper 1 [id number] capsule (PreserVision AREDS-2) allopurinol 100 mg tablet 200 mg (2 x 100 mg) PO QAM #180 09/04/23 11/22/23 Rx tabs clindamycin HCl 300 mg capsule 600 mg PO UD PRN prior to dental 10/20/23 11/22/23 History procedures fluticasone 250 mcg-salmeterol 50 1 inh inhalation BID #3 Inhalers 10/26/23 11/22/23 Rx mcg/dose blistr powdr for inhalation (Wixela Inhub) levothyroxine 50 mcg tablet 50 mcg PO QAM #90 tabs 10/26/23 11/22/23 Rx docusate sodium 100 mg capsule 100 mg PO DAILY 11/22/23 11/22/23 History (Colace) Patient History Medical History History of atrial tachycardia [facility] visit 01/2023: "Atrial tachycardia: One brief episode recorded with event monitor. No specific treatment indicated" History of atrial flutter [facility] cardio 01/2023: "SVT/atrial flutter: Occurred during peak dobutamine infusion according to [facility] records. Dobutamine may have induced the arrhythmia. No a fib/flutter recorded with event monitor. Anticoagulation therapy is not indicated currently for brief episode while on a proarrhythmic medication such as dobutamine." BPPV (benign paroxysmal positional vertigo) Per records Sleep apnea BIPAP (Compliant) Osteoarthritis Multiple thyroid nodules Hypothyroidism Hypertension Hyperlipidemia Diabetic peripheral neuropathy Feet Diabetes mellitus, type 2 Basal cell carcinoma of skin History of COVID-19 x2, most recent 2021 > symptoms resolved Macular degeneration Limb alert care status RUE History of gout No flare x years Urinary incontinence History of breast cancer 2018, Right breast, s/p surgery + radiation RUE limb restriction SVT (supraventricular tachycardia) [facility] visit 01/2023: "SVT/atrial flutter: Occurred during peak dobutamine infusion according to [facility] records. Dobutamine may have induced the arrhythmia. No a fib/flutter recorded with event monitor. Anticoagulation therapy is not indicated currently for brief episode while on a proarrhythmic medication such as dobutamine." Asthma Surgical History History of anesthesia reaction With initial breast biopsy 35 years ago, patient reports reaction to sodium pentothal allergic reaction/throat closing requiring intubation History of left cataract extraction History of right cataract surgery (08/30/23) History of total right knee replacement (TKR) Right TKA (03/01/23): SAB at L4-5, 1 attempt + regional at [facility] History of oral surgery History of wisdom tooth extraction History of lumpectomy of right breast x 2 (benign x 1, malignant x 1) History of lumpectomy of left breast benign History of breast biopsy Several H/O colonoscopy Family History Mother Sleep apnea Depression Hyperlipidemia Kidney disease COPD (chronic obstructive pulmonary disease) Hypertension Father Lung cancer Other No family history of adverse response to anesthesia Social History Smoking Status: Never smoker Second Hand Exposure: No; Do You Dip or Chew Tobacco: No; Tobacco Cessation Education Requested by Patient: No Hx Alcohol Use: Yes Hx Substance Use: No Preferred Language: Ecuadorean Communication Ability: Effective Wildlife Technician Required: No Beliefs That Will Affect Care: Religion Religion Beliefs: Cheondoism marital status: Single Current Living Situation: Alone Other Information That Helps Us Care for You: No Feels Safe at Home: Yes Safety Concerns: Feels Safe At This Time Assistive Devices: BiPap and Walker Review of Systems Constitutional: no fever, no sweats and no malaise Eyes: as per Subjective / HPI; no blind spots and no diplopia Ear, Nose, Mouth, Throat: no ear trauma Respiratory: + cough (not currently) and + dyspnea (n ot currently) Cardiovascular: no chest pain with activity Gastrointestinal: no bloating and no nausea Musculoskeletal: + joint pain; no loss of height Integumentary: no acne Neurologic: no paralysis Psychiatric: no behavioral changes Endocrine: no fatigue Results & Data Results & Data Vital Signs (Past 12 Hours) Vital Signs Temp Pulse Resp BP Pulse Ox O2 Del Method 11/23/23 15:00 36.5 C 72 14 123/71 93 Room Air 11/23/23 11:54 36.7 C 68 18 128/78 96 Room Air 11/23/23 09:00 Room Air 11/23/23 07:47 37.0 C 72 18 125/74 93 Room Air PG Care Time/CCT Total # of Minutes Spent Total Time Spent with Patient: Total time spent is greater than 50% in coordination of care (as documented) at patient's floor/unit and/or counseling patient: Coding Level of Care Code 80622 IN/OBS CONSULT LVL 3,45M Diagnoses Primary osteoarthritis of left knee M17.12 Osteoarthritis type: primary Acute blood loss anemia D62 SVT (supraventricular tachycardia) I47.1 Type 2 diabetes mellitus without complication, without long-term current use of insulin E11.9 Diabetes mellitus type: type 2 Diabetes mellitus care home insulin use: without care home use Diabetes mellitus complication status: without complication Primary hypertension I10 Hypertension type: primary hypertension Mixed hyperlipidemia E78.2 Hyperlipidemia type: mixed hyperlipidemia Acquired hypothyroidism E03.9 Hypothyroidism type: acquired (1) Osteoarthritis of left knee Osteoarthritis type: primary Qualified Code(s): M17.12 - Unilateral primary osteoarthritis, left knee (4) Diabetes mellitus Diabetes mellitus type: type 2 Diabetes mellitus long term care phlebotomist insulin use: without long term care phlebotomist use Diabetes mellitus complication status: without complication Qualified Code(s): E11.9 - Type 2 diabetes mellitus without complications (5) Hypertension Hypertension type: primary hypertension Qualified Code(s): I10 - Essential (primary) hypertension (6) Hyperlipidemia Hyperlipidemia type: mixed hyperlipidemia Qualified Code(s): E78.2 - Mixed hyperlipidemia (7) Hypothyroidism Hypothyroidism type: acquired Qualified Code(s): E03.9 - Hypothyroidism, unspecified
--- NOTE | 2023-11-24 08:56 | Orthopedic Progress Note ---
Date of Service November 24, 2023 Assessment & Plan (1) Osteoarthritis of left knee: Plan: Postop day #2 left total knee arthroplasty The patient may continue to weight-bear as tolerated left lower extremity. Continue PT and OT for range of motion and gait training. Pain controloral oxycodone, oral Tylenol, IV Dilaudid as needed. DVT prophylaxisaspirin 81 mg twice daily. Hemovacthe Hemovac remain in place until tomorrow. We discussed removal of the Hemovac tomorrow whether she is still inpatient or has been transferred to her rehab facility. Discharge planningthe patient will probably require a rehab stay. If she has a bed at [facility], she may be able to be discharged later today. If she has to go to a [facility] facility for rehabilitation stay, her insurance requires a 3-day admission which starts after admission yesterday. (2) Morbid obesity: (3) History of right knee joint replacement: Admission and Anticipated Discharge Date Admission Date: November 23, 2023 Subjective The patient states she is having a fair amount of pain in the left knee. Feels that the left knee is more painful than her right knee that was done earlier this year. She has been ambulating but needing to use IV pain medication. No new complaints today. Physical Exam Constitutional: WD/WN, vitals as above no acute distress (Patient sitting in bed comfortably.) Musculoskeletal: Knee: + surgical incision (Dressing C/D/I. RAN dressing in place and functioning.) and + surgical drain present (Left knee Hemovac had drained 75 cc at 2200 last evening. ) Skin: no rashes, warm and dry Trauma: no evidence of skin trauma Neurologic: normal touch/pain/proprioception (Dorsiflexion and plantarflexion of the left ankle intact.) Psychiatric: A+Ox3, euthymic affect Speech: normal rate/rhythm/volume of speech Results & Data Vital Signs (Past 12 Hours) Vital Signs Temp Pulse Resp BP Pulse Ox O2 Del Method 11/24/23 08:19 36.9 C 76 18 111/64 93 Room Air 11/23/23 22:19 36.7 C 11/23/23 20:48 37.4 C 78 16 137/71 93 Room Air (1) Osteoarthritis of left knee Osteoarthritis type: primary Qualified Code(s): M17.12 - Unilateral primary osteoarthritis, left knee
--- NOTE | 2023-11-24 13:10 | Pharmacy Report ---
Glycemic Ortho Sign Off Note - Date of Service November 24, 2023 - Scope Glycemic Pharmacist consulted for glycemic control and to write orders per [facility] inpatient glycemic control protocol. - Objective Accuchecks BSG (last 24hrs):: 11/23/23 11/23/23 11/24/23 16:23 20:43 07:45 POC Glucose 134 H 143 H 142 H 11/24/23 11:59 POC Glucose 130 H - Assessment * Pt is maintained on oral antidiabeticagent[s]as anoutpatient with excellent control per recent A1c * Oral agents are not recommended for inpatient use d/t drug interactions, changing PO intake, and difficulty titrating for acute hyper/hypoglycemia. * Recommended regimen for inpatient use is SQ insulin * Low stress weight based insulin dosing appropriate since patient has minimal risk factors for insulin resistance (i.e. no steroids). * Appropriate to DC insulin and resume outpatient antidiabetic regimen at discharge * Goal is to maintain BSGs <200 mg/dl (ideally <150 mg/dl) to prevent post op complications - Plan For Inpatient Glycemic Control * Basal insulin * Not needed based on A1c, pre-op BSGs, and minimal risk factors for insulin resistance * Bolus insulin * Utilize low stress weight based NovoLog parameters per scale ACHS * Pharmacy has entered glycemic orders and is signing off of the glycemic consult. We will no longer be making adjustments to inpatient regimen. Please feel free to re-consult if needed. Thank you.
[2023-11-24 21:17] VITALS: RESP 18; O2SAT 94
--- NOTE | 2023-11-25 07:23 | Orthopedic Progress Note ---
<Statement entered by Sunny Thomas DO - 11/25/23 19:16> I saw and evaluated this patient with the physicians learning and development assistant. I agree with the above. She is postoperative day #3 status post left total knee arthroplasty. Overall, she is doing well. She notes that this side has been a little bit more difficult than the contralateral side. the patient can continue to weight-bear as tolerated. She will be ready for discharge to rehab today. She will follow-up with Dr. Freeman as scheduled Date of Service November 25, 2023 Assessment & Plan (1) Osteoarthritis of left knee: Plan: Postop day #3 left total knee arthroplasty The patient may continue to weight-bear as tolerated left lower extremity. Continue PT and OT for range of motion and gait training. Pain controloral oxycodone, oral Tylenol, IV Dilaudid as needed. DVT prophylaxisaspirin 81 mg twice daily. Hemovacthe Hemovac Was discontinued. Discharge planningthe patient will require a rehab stay. Plan [facility]. (2) Morbid obesity: (3) History of right knee joint replacement: Admission and Anticipated Discharge Date Admission Date: November 23, 2023 Subjective Postop day 3 Patient sitting up in bed awake and alert. Patient stating that her left knee surgery is a little bit worse as far as pain control compared to her right knee that was done in February. She is unable to do an SLR at this point in time which we discussed that that can be normal at times for us for each surgery. Patient appears comfortable this morning. Her biggest difficulty is getting the left leg in and out of bed initially. She is able to bear weight on the left lower extremity during PT. No other complaints at this time. Physical Exam Physical Exam: Ga dressing is clean, dry, and intact. Swelling consistent with surgery. Calves are soft nontender. Neurovascular appears intact. She has good dorsiflexion and plantarflexion of her left foot. Drain has been removed. Results & Data Vital Signs (Past 12 Hours) Vital Signs Temp Pulse Resp BP Pulse Ox O2 Del Method 11/24/23 21:04 Room Air 11/24/23 20:30 37.8 C H 82 18 121/72 94 Room Air Laboratory Results 11/24/23 11/24/23 11/24/23 Range/Units 20:56 16:41 11:59 POC Glucose 147 H 120 H 130 H (70-99) mg/dl 11/24/23 Range/Units 07:45 POC Glucose 142 H (70-99) mg/dl (1) Osteoarthritis of left knee Osteoarthritis type: primary Qualified Code(s): M17.12 - Unilateral primary osteoarthritis, left knee
--- NOTE | 2023-11-25 08:08 | Hospitalist Progress Note ---
Date of Service November 25, 2023 Assessment & Plan (1) Osteoarthritis of left knee: Plan: per primary team DVT prophylaxis per primary team (2) Acute blood loss anemia: Plan: staus post surgery vitals are stable. will be going to [facility]. (3) SVT (supraventricular tachycardia): Plan: appears controlled (4) Diabetes mellitus: Plan: insulin aspart ordered. (5) Hypertension: Plan: on hold due to acute blood loss anemia. BP also appears to be controlled (6) Hyperlipidemia: Plan: resume pravastatin (7) Hypothyroidism: Plan: resume levothyroxine Admission and Anticipated Discharge Date Admission Date: November 23, 2023 Subjective 68 yo female reports no new symptoms. Review of Systems Review of Systems: All systems reviewed & are unremarkable except as noted in HPI & below Physical Exam Physical Exam: General-alert and oriented x3, no fever, no chills. Morbidly obese HEENT-head atraumatic and normocephalic, pupils equal and reactive to light, extraocular muscles intact Neck-no lymphadenopathy or thyromegaly, trachea midline Chest-clear to auscultation. No rales, wheezing or rhonchi Cardiac-regular rate and rhythm, normal S1 and S2 Abdomen-normal bowel sounds, nontender, no hepatosplenomegaly Psych-normal affect, normal mood Results & Data Results & Data Vital Signs (Past 12 Hours) Vital Signs Temp Pulse Resp BP Pulse Ox O2 Del Method 11/24/23 21:04 Room Air 11/24/23 20:30 37.8 C H 82 18 121/72 94 Room Air PG Care Time/CCT Total # of Minutes Spent Total Time Spent with Patient: Total time spent is greater than 50% in coordination of care (as documented) at patient's floor/unit and/or counseling patient: Coding Level of Care Code 84336 SUB INP/OBS CARE 2/35MIN Diagnoses Primary osteoarthritis of left knee M17.12 Osteoarthritis type: primary Acute blood loss anemia D62 SVT (supraventricular tachycardia) I47.1 Type 2 diabetes mellitus without complication, without long-term current use of insulin E11.9 Diabetes mellitus complication status: without complication Diabetes mellitus termite control servicer insulin use: without termite control servicer use Diabetes mellitus type: type 2 Primary hypertension I10 Hypertension type: primary hypertension Mixed hyperlipidemia E78.2 Hyperlipidemia type: mixed hyperlipidemia Acquired hypothyroidism E03.9 Hypothyroidism type: acquired (1) Osteoarthritis of left knee Osteoarthritis type: primary Qualified Code(s): M17.12 - Unilateral primary osteoarthritis, left knee (4) Diabetes mellitus Diabetes mellitus complication status: without complication Diabetes mellitus termite control servicer insulin use: without usp use Diabetes mellitus type: type 2 Qualified Code(s): E11.9 - Type 2 diabetes mellitus without complications (5) Hypertension Hypertension type: primary hypertension Qualified Code(s): I10 - Essential (primary) hypertension (6) Hyperlipidemia Hyperlipidemia type: mixed hyperlipidemia Qualified Code(s): E78.2 - Mixed hyperlipidemia (7) Hypothyroidism Hypothyroidism type: acquired Qualified Code(s): E03.9 - Hypothyroidism, unspecified
[2023-11-25 08:47] LABS: Hemoglobin 9.6 g/dl (12.0-16.0)
[2023-11-25 09:12] VITALS: BP 156/71; PULSE 78; TEMP 98.6
== END 2023-11-25 15:15 | DRG 470 ==
LOC: 3E 09:07 → ASU 09:07